=== PATIENT | female | born 1965 | race Caucasian/White ===

== ENCOUNTER 2016-06-04 05:27 | Day surgery (SDC) | payer BC ==
[2016-06-02 16:17] LABS: BASOPHILS 0.2 % (0.0-2.0); EOSINOPHILS 1.5 % (0-7); HEMATOCRIT 42.6 % (36.0-48.0); HEMOGLOBIN 13.8 g/dL (12-16); IMMATURE GRANULOCYTES 0.4 % (0-5); LYMPHOCYTES 28.1 % (15-50); MCH 29.1 pg (26.0-34.0); MCHC 32.4 g/dL (31.0-37.0); MCV 89.9 fL (80.0-100.0); MEAN PLATELET VOLUME 9.2 fL (7.4-10.4); MONOCYTES 7.9 % (2-11); NEUTROPHILS 61.9 % (40-80); RBC 4.74 10x6/uL (4.00-5.40); RDW 13.7 % (11.5-14.5)
[2016-06-02 16:30] LABS: PLATELET COUNT 256 10x3/uL (130-400)
[~2016-06-04] VITALS: Ht 165.1 cm; Wt 160.1 kg
[~2016-06-04 05:27] MED LIST: ACETAMINOPHEN325 MG PO; ALEVE220 MG PO; COLACE100 MG PO; LEXAPRO10 MG PO; MAG-OX 400 MG400 MG PO; MULTIPLE VITAMI1 TA1 PO; OMEPRAZOLE20 M1 PO; VITAMIN D31000 UNIT PO; ZYRTEC10 MG PO
[2016-06-04 06:42] VITALS: BP 133/67; Ht 165.1 cm; Wt 160.1 kg
[2016-06-04 06:58] LABS: HCG URINE NEGATIVE (NEGATIVE)
--- NOTE | 2016-06-04 13:17 | NUR ---
1245-PT. ESCORTED VIA WHEELCHAIR TO PERSONAL CAR, LEFT WITH MOTHER DRIVING.
--- NOTE | 2016-06-17 12:41 | OP ---
PATIENT NAME: SHAWN MORALES MEDICAL RECORD: [id number] :69 LOCATION:D.[facility] ADMISSION DATE: SURGEON: HUMBERTO WASHINGTON MD DATE OF OPERATION: 06/04/2016 PREOPERATIVE DIAGNOSES: Amenorrhea and thickened endometrial lining. POSTOPERATIVE DIAGNOSES: Amenorrhea and thickened endometrial lining. PROCEDURE: Hysteroscopy, dilation and curettage. SURGEON: Humberto Washington MD ESTIMATED BLOOD LOSS: Minimal. INTRAVENOUS FLUIDS: Per anesthesia records. HYSTEROSCOPIC FLUID LOSS: Approximately 300 cc of 0.9 normal saline. SPECIMENS: Endometrial curettings. COMPLICATIONS: None apparent. PROCEDURE IN DETAIL: The patient was taken to the operating room, where general anesthesia was achieved without difficulty. The patient was prepped and draped in normal sterile fashion in the dorsal lithotomy position in the [facility]. Care was taken with the left hip due to a previous hip replacement. The knee was flexed to only approximately 25 degrees and the leg extended only approximately 40 degrees from the supine position. The vagina was prepped and the bladder drained of approximately 100 cc of clear urine. A 4 bladed speculum was then used to visualize the cervix; it was grasped with anterior lip using a single tooth tenaculum. The uterus sounded to 10 cm without any resistance, so the 3 mm hysteroscope was inserted without difficulty to ensure that the patient's cavity was as deep as palpated. The patient had a very long deep endometrial canal and following confirmation of the size, the patient was sounded to approximately 14-15 cm. Findings was copious proliferative appearing endometrium. Gentle curettage was performed and following curettage, the hysteroscope was reintroduced and no evidence of perforation was noted. The tenaculum and speculum were then removed. The patient tolerated the procedure well, transferred to postanesthesia recovery stable without incident. TRANSINT:[id number] Voice Confirmation ID: [id number] DOCUMENT ID: [id number] HUMBERTO WASHINGTON MD at 1240 CC: [id number] DICTATION DATE: 06/04/1625 ENERGY PROJECT ENGINEER: 06/04/16 0937 [facility] [address] [place] [address]
[2016-08-18] MEDS ORDERED: ASPIRIN325 MG PO (11:05)
== END 2016-06-04 12:45 | disposition home or self-care (01) ==
LOC: D.OPS 05:27 → D.PAN 07:45 → D.OPS 07:45
PROVIDERS: Obstetrics & Gynecology
DX: N91.2 Amenorrhea, unspecified (principal); R93.8 Abnormal findings on diagnostic imaging of other specified body structures; N85.01 Benign endometrial hyperplasia; Z96.642 Presence of left artificial hip joint

== ENCOUNTER 2016-08-20 05:22 | Inpatient (IN) | payer BC ==
[2016-08-18 11:51] LABS: CALC OSMOLALITY 278 mosm/kg (275-300); CALCIUM 9.4 mg/dL (8.5-10.1); CARBON DIOXIDE 35.2 mmol/L (21.0-32.0); CHLORIDE - SERUM 98 mmol/L (98-107); CREATININE - SERUM 0.8 mg/dL (0.6-1.3); GLUCOSE 87 mg/dL (74-106); POTASSIUM - SERUM 4.8 mmol/L (3.5-5.1); SODIUM 140 mmol/L (136-145); UREA NITROGEN 14 mg/dL (7-18); eGFR NON AFRICAN AMERICAN 81 mL/min (90-120)
[2016-08-18 11:53] LABS: BASOPHILS 0.4 % (0.0-2.0); EOSINOPHILS 1.3 % (0-7); HEMATOCRIT 43.3 % (36.0-48.0); HEMOGLOBIN 13.8 g/dL (12-16); IMMATURE GRANULOCYTES 0.4 % (0-5); LYMPHOCYTES 31.8 % (15-50); MCH 28.8 pg (26.0-34.0); MCHC 31.9 g/dL (31.0-37.0); MCV 90.4 fL (80.0-100.0); MEAN PLATELET VOLUME 9.6 fL (7.4-10.4); MONOCYTES 7.2 % (2-11); NEUTROPHILS 58.9 % (40-80); PLATELET COUNT 261 10x3/uL (130-400); RBC 4.79 10x6/uL (4.00-5.40); RDW 13.4 % (11.5-14.5); WBC 7.7 10x3/uL (4.8-10.8)
[~2016-08-20] VITALS: Ht 165.1 cm; Wt 112.7 kg
[2016-08-20] VITALS (13 sets, daily range): BP systolic 108–153; BP diastolic 58–88; Ht 165.1 cm; Wt 112.7 kg
[~2016-08-20 05:22] MED LIST changes: +ASPIRIN325 MG PO
[2016-08-20 05:51] LABS: HCG URINE NEGATIVE (NEGATIVE)
--- NOTE | 2016-08-20 10:35 | NUR ---
PLACED PT ON BIPAP PER RT UPON ARRIVAL TO RECOVERY ROOM.
--- NOTE | 2016-08-20 10:58 | NUR ---
REMOVED BIPAP PER OK WITH ANESTHESIA. TOLERATING 4LNC WITH SPO2 OF 94%.
--- NOTE | 2016-08-20 11:04 | NUR ---
PLACED ON OXYMIZER NC TO KEEP SPO2>92% PER ANESTHESIA.
--- NOTE | 2016-08-20 11:30 | NUR ---
PATIENT RECIEVED TO ROOM 1218 SHE IS AWAKE AND ALERT, O2 PER OXIMIZER AT 8LPM. HER SATURATION IS 95%. VSS. IVF AND COUPON REDEMPTION CLERK INITIATED. BIRD CATHETER PATENT WITH BLUEGREEN URINE TO BEDSIDE UROMETER. NO BLEEDING FROM VAGINAL AREA NOTED. DRESSING TO BIKINI INCISION IS C/D/I. SPOUSE AND HER MOTHER ARE AT THE BEDSIDE AT THIS TIME.
--- NOTE | 2016-08-20 11:58 | NUR ---
150cc emptied from the urometer to the collection bag. her pulse ox fell to 86% and oximeter machine alarmed. she tool several deep breaths and her sat osorio to 95%. her mother ai at the bedisde. she states that she is comfortable. tolentino tubing secured to the left leg. hob up 45 degrees with 2 pillows behind her left shoulder to support her more upright. call light is within her reach. monitoring.
--- NOTE | 2016-08-20 13:09 | NUR ---
PATIENT REPOSITIONED FOR COMFORT. 60CC OF MURKY GREEN URINE EMPTIED FROM THE UROMETER INTO THE COLLECTION BAG. VSS. MONITORING. O2 DELIVERY TURNED DOWN TO 5LPM. SATS 95% ON OXIMIZER.
--- NOTE | 2016-08-20 13:41 | NUR ---
PATIENT IS RESTING QUIETLY WITH HER EYES CLOSED. MANAGEMENT CONSULTANT IN USE. SHE STATES THAT SHE IS HURTING A LITTLE BIT. BIRD CATHETER REMAINS PATENT.
--- NOTE | 2016-08-20 14:10 | NUR ---
O2 TO 4L PER OXIMIZER. O2 SAT 96%
--- NOTE | 2016-08-20 14:48 | NUR ---
350CC OF GREEN URINE EMPTIED FROM THE UROMETER INTOR THE COLLECCTION VIKKI. COFFEE GIVEN BLACK PER REQUEST. HER TEMP IS 98.1 AND VSS. LAMARER AND SPOUSE REMAIN AT [facility].
--- NOTE | 2016-08-20 15:10 | NUR ---
VSS. O2 TURNED DOWN TO 3LPM. SAT 95%
--- NOTE | 2016-08-20 16:26 | NUR ---
PATIENT IS 91% ON 2LPM PER NC. SHE IS QWITHOUT C/O UNCONTROLLED PAIN . URINE OP CONTINUES TO BEDSIDE DRAINAGE BAG. CALL LIGHT IS WITHIN HER REACH
--- NOTE | 2016-08-20 16:57 | NUR ---
PTS IV IS PATENT. TUBING CHANGED OUT DUE TO PROBLEMS WITH LINE. PT WAS SITUATED IN BED. PT IS COMFORTABLE. BED IS LOW. SIDE RAILS UP X 2 AND CALL LIGHT IN REACH.
--- NOTE | 2016-08-20 18:27 | NUR ---
PT ATE 100% OF DINNER. FAMILY AT BEDSIDE. PAIN CONTROLLED BY TOOL ADJUSTER.
--- NOTE | 2016-08-20 19:30 | NUR ---
PT RECEIVED LYING IN BED RESTING QUIETLY AT THIS TIME. AAOX3. VSS. IV NOTED TO LEFT WRIST INFUSING LR @ 125 CC/HR WITH DILAUDID ELECTROMECHANICAL INSPECTOR. PATENT. DRESSING CDI. BIRD ATTACHED TO RIGHT THIGH. DRAINING LIGHT GREEN URINE. PT RATES PAIN 4/10 AT THIS TIME. HEART SINUS TACHYCARDIA RHYTHM REGULAR. PULSE-107. LUNG SOUNDS CLEAR BILATERALLY. BOWEL SOUNDS ACTIVE X4 QUADRENTS. ABDOMEN SOFT WITH TENDERNESS. LOW TRANSVERSE INCISION NOTED TO ABDOMEN COVERED WITH BANDAGE. DRESSING CDI. SCDS NOTED TO BLE. PT USED IS AT THIS TIME. PULLED 1500. PT ALSO COUGHED AT THIS TIME. REINFORCED IMPORTANCE OF TURNING, COUGHING, AND DEEP BREATHING. PT VERBALIZED UNDERSTANDING. REQUESTS ICE PACK. DENIES OTHER NEEDS. BED LOW. PHONE AND CALL LIGHT IN REACH. SRX2.
--- NOTE | 2016-08-20 19:32 | NUR ---
CURRENT LR INFUSION COMPLETE. OLD BAG DOWN. NEW BAG UP TO PRESENT TUBING INFUSING @ 100 ML/HR PER ORDERS. SEE EMAR.
--- NOTE | 2016-08-20 20:20 | NUR ---
PT BRICKLAYER'S ASSISTANT LIGHT. REQUESTS BEDSIDE TABLE BE MOVED WITHIN REACH. DENIES OTHER NEEDS. BED LOW. PHONE AND CALL LIGHT IN REACH. SRX2.
[2016-08-20 20:22] LABS: BASOPHILS 0.1 % (0.0-2.0); EOSINOPHILS 0 % (0-7); HEMATOCRIT 38.2 % (36.0-48.0); IMMATURE GRANULOCYTES 0.3 % (0-5); LYMPHOCYTES 8.2 % (15-50); MCH 28.3 pg (26.0-34.0); MCHC 31.4 g/dL (31.0-37.0); MCV 90.1 fL (80.0-100.0); MEAN PLATELET VOLUME 9.8 fL (7.4-10.4); MONOCYTES 7.1 % (2-11); NEUTROPHILS 84.3 % (40-80); PLATELET COUNT 231 10x3/uL (130-400); RBC 4.24 10x6/uL (4.00-5.40); RDW 13.2 % (11.5-14.5); WBC 15.3 10x3/uL (4.8-10.8)
[2016-08-20 20:46] LABS: CALC OSMOLALITY 280 mosm/kg (275-300); CALCIUM 8.5 mg/dL (8.5-10.1); CARBON DIOXIDE 31.4 mmol/L (21.0-32.0); CHLORIDE - SERUM 102 mmol/L (98-107); CREATININE - SERUM 0.8 mg/dL (0.6-1.3); POTASSIUM - SERUM 4.3 mmol/L (3.5-5.1); SODIUM 140 mmol/L (136-145); UREA NITROGEN 10 mg/dL (7-18); eGFR NON AFRICAN AMERICAN 81 mL/min (90-120)
[2016-08-20 20:49] LABS: GLUCOSE 144 mg/dL (74-106)
--- NOTE | 2016-08-20 21:48 | NUR ---
PT LYING IN BED RESTING QUIETLY AT THIS TIME. DENIES NEEDS. BED LOW. PHONE AND CALL LIGHT IN REACH. SRX2.
--- NOTE | 2016-08-20 22:46 | NUR ---
PT RESTING QUIETLY AT THIS TIME WITH EYES CLOSED. RESPIRATIONS EVEN, NON-LABORED. NO ACUTE DISTRESS NOTED AT THIS TIME. BED LOW. PHONE AND CALL LIGHT IN REACH. SRX2.
--- NOTE | 2016-08-20 23:46 | NUR ---
PT RESTING QUIETLY AT THIS TIME WITH EYES CLOSED. AROUSED EASILY. EMPTIED 1600 CC LIGHT GREEN URINE FROM BIRD AT THIS TIME. PT DENIES NEEDS. BED LOW. PHONE AND CALL LIGHT IN REACH. SRX2.
[2016-08-21 03:50] VITALS: BP 125/60
--- NOTE | 2016-08-21 03:50 | NUR ---
PT WATCHING TV AT THIS TIME. VSS. PT DENIES NEEDS AT THIS TIME. BED LOW. PHONE AND CALL LIGHT IN REACH. SRX2.
--- NOTE | 2016-08-21 04:20 | NUR ---
1000 CC SHANTA URINE EMPTIED FROM BIRD AT THIS TIME. PT REQUESTS ICE WATER. DENIES OTHER NEEDS.
--- NOTE | 2016-08-21 05:24 | NUR ---
PT RESTING QUIETLY AT THIS TIME WITH EYES CLOSED. AROUSED EASILY. DENIES NEEDS. BED LOW. PHONE AND CALL LIGHT IN REACH. SRX2.
[2016-08-21 06:28] LABS: BASOPHILS 0.1 % (0.0-2.0); EOSINOPHILS 0.1 % (0-7); HEMATOCRIT 36.1 % (36.0-48.0); HEMOGLOBIN 11.2 g/dL (12-16); IMMATURE GRANULOCYTES 0.2 % (0-5); LYMPHOCYTES 15.4 % (15-50); MCH 28.1 pg (26.0-34.0); MCV 90.7 fL (80.0-100.0); MEAN PLATELET VOLUME 9.7 fL (7.4-10.4); MONOCYTES 12.6 % (2-11); NEUTROPHILS 71.6 % (40-80); PLATELET COUNT 220 10x3/uL (130-400); RBC 3.98 10x6/uL (4.00-5.40); RDW 13.3 % (11.5-14.5); WBC 12.4 10x3/uL (4.8-10.8)
[2016-08-21 06:40] LABS: CALCIUM 8.5 mg/dL (8.5-10.1); CHLORIDE - SERUM 102 mmol/L (98-107); POTASSIUM - SERUM 4.4 mmol/L (3.5-5.1); SODIUM 140 mmol/L (136-145); UREA NITROGEN 9 mg/dL (7-18)
[2016-08-21 06:42] LABS: CALC OSMOLALITY 278 mosm/kg (275-300); CREATININE - SERUM 0.5 mg/dL (0.6-1.3); GLUCOSE 121 mg/dL (74-106); eGFR NON AFRICAN AMERICAN > 90 mL/min (90-120)
--- NOTE | 2016-08-21 07:15 | NUR ---
DR MILAN ROBERT.
[2016-08-21 07:30] VITALS: BP 131/73
--- NOTE | 2016-08-21 07:39 | NUR ---
TO ROOM TO DO VITAL SIGNS AND ASSESSMENT. DOCUMENTED IN FLOW CHART. STATES THAT PAIN AT 5 ON NUMERIC SCALE. READDRESSED THE PLAN TO DC BIRD AND SPINDLE SANDER WITH THE CONVERSION TO PO MEDICATIONS FOR PAIN. STATES UNDERSTANDING AND THAT SHE HAS NO FURTHER NEEDS AT THIS TIME.
--- NOTE | 2016-08-21 08:00 | NUR ---
PT WAS RECEIVED SITTING UP IN BED GETTING READY TO EAT BREAKFAST. GEN- AWAKE AND ALERT. LUNGS- CLEAR. HEART- RRR. ABD- OBESE, BIKINI LINE INCISION WITH DRESSING- CLEAN , DRY AND INTACT. EXT- WITH SCD'S NOTED BILATERALLY. BIRD INTACT WITH SHANTA COLORED URINE. HAS HAD GOOD OUTPUT. IV PATENT- LEFT WRIST-WITH LR INFUSING AT 125CC/HR. DILAUDID CABLE TELEVISION PROGRAM DIRECTOR. SCD'S INTACT. BED IS LOW, SIDE RAILS UP X 2 AND CALL LIGHT IN REACH.
--- NOTE | 2016-08-21 08:20 | NUR ---
Pt awake and alert. PIV infusing without difficulty. SCD on BLE and working, tolentino to bedside gravity. BANQUET KITCHEN SUPERVISOR in use for pain control. Pt happy with care and denies needs at this time. No acute distress noted at this time.
--- NOTE | 2016-08-21 08:53 | NUR ---
SITTING IN BED WATCHING TV AND TALKING ON PHONE. STATES THAT SHE IS "DOING FINE' AND " I DON'T NEED ANYTHING".
--- NOTE | 2016-08-21 09:27 | NUR ---
PROVIDED FRESH WATER AND ICE. WATCHED PT USED THE INCENTIVE SPIROMETER SUCCESSFULLY. ENCOURAGED DEEP BREATHING AND TURNING. STATES UNDERSTANDING.
--- NOTE | 2016-08-21 10:43 | NUR ---
DRAINED BIRD BAG OF 425 ML OF CLEAR, PALE YELLOW URINE. DC'd FOLLEY CATH. WELL TOLERATED. PROVIDED ADILSON CARE. REPOSITIONED IN BED. DC'd YARN SKEINS EXAMINER AND PROVIDED ORAL PAIN MEDICATIONS REQUESTED AND ORDERED FOR PAIN LEVEL OF 8 AFTER THE REPOSITIONING. INSTRUCTED TO CALL WHEN SHE NEEDS TO GO TO THE BR. BED IN LOWEST POSITION, S/R UP X 2, CALL LIGHT AND PHONE WITHIN REACH. FAMILLY AT BEDSIDE.
--- NOTE | 2016-08-21 11:29 | NUR ---
REASSESSED THE LEVEL OF PAIN. STATES 3 ON NUMERIC SCALE. AND FEMALE AT BEDSIDE. ALL ARE ON THEIR PHONES/[id number]. STATES NO FURTHER NEEDS AT THIS TIME. STATES SHE "WILL CALL WHEN SHE NEEDS TO JULIA TO THE BATHROOM".
--- NOTE | 2016-08-21 12:12 | NUR ---
WATCHING TV IN BED. FAMILY LEAVING FOR LUNCH. STATES NO NEEDS AT THIS TIME. WILL CONTINUE TO MONITOR.
--- NOTE | 2016-08-21 14:19 | NUR ---
GAVE PAIN MEDICATION REQUESTED AND ORDERED FOR PAIN OF 3 ON NUMERIC SCALE. REPOSITIONED AND PROVIDED FRESH ICEWATER. WILL MONITOR.
--- NOTE | 2016-08-21 14:51 | NUR ---
STAND BY ASSISTED ONLY NEEDED, UP TO RESTROOM WITHOUT DIFFICUILTY DENIES DIZZINESS AT THIS TIME.
--- NOTE | 2016-08-21 15:10 | NUR ---
STAND BY ONLY FOR PT TO RETURN FROM BR. 350 ML OF SLIGHTLY BLOOD TINGED URINE IN HAT. AMBULATED WELL NEEDED NO ASSISTANCE RETURNING TO BED. COUGHED AND DID DEEP BREATHING. BED IN LOWEST POSITION, S/R UP X 2, CALL LIGHT AND PHONE WITHIN REACH. STATES NO FURTHER NEEDS AT THIS TIME.
--- NOTE | 2016-08-21 16:34 | NUR ---
PT RESTING WITH EYES CLOSED AND STEADY EVEN RESPIRATIONS. AWAKENS TO VOICE, SMILES, GIVES ME A THUMBS UP AND DRIFTS BACK OFF TO SLEEP. FEMALE FAMILY MEMBER AT BEDSIDE. WILL CONTINUE TO MONITOR.
--- NOTE | 2016-08-21 16:49 | NUR ---
RESPONDED TO CALL LIGHT. UP TO VOID WITH BEING THE THIRD VOID. OUTPUT OF OVER 300 ML LAST TWO ATTEMPTS.
--- NOTE | 2016-08-21 17:07 | NUR ---
DC'd IV OF LEFT WRIST. TIP INTACT, NO EDEMA, NO REDNESS. TOLERATED WELL. VOIDED 600ML OF CLEAR YELLOW WITH TWO PEA SIZE CLOTS PRESENT. REAJUSTED LINENS AND REPOSITIONED PT. STATES NO FURTHER NEEDS AT THIS TIME.
--- NOTE | 2016-08-21 17:18 | NUR ---
WASTING THE HYDROMORPHONE HCL IN THE TOILET BECAUSE IT WAS NOT ON THE PIXIS. RN CALLED PHARMACY AND WAS INSTRUCTED TO NOTE HERE. 5.6MG OF THE 12MG TOTAL WAS GIVEN AND WE WASTED 6.4.
[2016-08-21 19:50] VITALS: BP 124/70
--- NOTE | 2016-08-21 19:50 | NUR ---
PT RECEIVED SITTING UP IN CHAIR AT THIS TIME AAOX3 WATCHING TV. VSS. HEART RRR. LUNG SOUNDS CLEAR BILATERALLY. BOWEL SOUNDS ACTIVE X4 QUADRENTS. ABDOMEN SOFT WITH TENDERNESS. LOW TRANSVERSE INCISION NOTED TO ABDOMEN WITH BANDAGE IN PLACE. CDI. PT STATES SHE IS PASSING GAS AT THIS TIME. PT DENIES NEEDS. BED LOW. PHONE AND CALL LIGHT IN REACH. SRX2.
--- NOTE | 2016-08-21 20:47 | NUR ---
PT SITTING UP IN CHAIR AT THIS TIME REQUESTS MEDICATION FOR PAIN 10/07. ADMINISTERED NORCO AND MOTRIN PO PER ORDERS AT THIS TIME. PT ALSO REQUESTS ICE WATER. DENIES OTHER NEEDS. BED LOW. PHONE AND CALL LIGHT IN REACH. SRX2.
--- NOTE | 2016-08-21 21:35 | NUR ---
PT BACK IN BED AT THIS TIME. REASSESSED PTS PAIN. RATES PAIN 5/10. DENIES NEEDS. BED LOW. PHONE AND CALL LIGHT IN REACH. SRX2.
--- NOTE | 2016-08-21 22:15 | NUR ---
PT RESTING QUIETLY AT THIS TIME. AROUSED EASILY. DENIES NEEDS. BED LOW. PHONE AND CALL LIGHT IN REACH. SRX2.
[2016-08-21 23:55] VITALS: BP 132/55
--- NOTE | 2016-08-21 23:55 | NUR ---
PT RESTING QUIETLY AT THIS TIME WITH EYES CLOSED. AROUSED EASILY. DENIES NEEDS AT THIS TIME. BED LOW. PHONE AND CALL LIGHT IN REACH. SRX2.
--- NOTE | 2016-08-22 01:56 | NUR ---
PT RESTING QUIETLY AT THIS TIME WITH EYES CLOSED. AROUSED EASILY. DENIES NEEDS. BED LOW. PHONE AND CALL LIGHT IN REACH. SRX2.
[2016-08-22 03:38] VITALS: BP 124/81
--- NOTE | 2016-08-22 03:38 | NUR ---
PT RESTING QUIETLY AT THIS TIME AWAKE AND ALERT. DENIES NEEDS. PT STATES SHE IS GOING TO GET UP TO USE THE RESTROOM AT THIS TIME. BED LOW. PHONE AND CALL LIGHT IN REACH. SRX2.
[2016-08-22 07:15] VITALS: BP 147/76
--- NOTE | 2016-08-22 07:30 | NUR ---
PT AWAKE, ALERT, ORIENTED, SITTING UP IN BED. VSS. DRESSING TO LOWER ABD C/D/I UNDER LARGE PANNACULUS. PT STATES SHE HAS PASSED GAS. BS PRESENT. REG DIET PROVIDED. NO OTHER NEEDS AT THIS TIME.
--- NOTE | 2016-08-22 08:46 | NUR ---
TOWELS PROVIDED. PT UP TO SHOWER.
--- NOTE | 2016-08-22 09:13 | NUR ---
RESTING IN BED AFTER SHOWER. FAMILY AT BEDSIDE. NO NEEDS.
--- NOTE | 2016-08-22 10:08 | NUR ---
RESTING EASILY WITH EYES CLOSED, EVEN RESP. FAMILY AT BEDSIDE.
--- NOTE | 2016-08-22 10:50 | NUR ---
DR. VILLAGRAN HERE FOR ROUNDS. DRESSING D/C'D FROM INCISION. INCISION LINE C/D/I WITH TURNER. COVERED WITH ADILSON PAD FOR COMFORT.
[2016-08-22] MEDS ORDERED: IBUPROFEN600 MG PO (11:37)
[2016-08-22] MEDS ORDERED: HYDROCODONE-APA1 TAB PO (11:37)
--- NOTE | 2016-08-22 11:50 | NUR ---
D/C INSTRUCTIONS EXPLAINED TO PT. VOICED UNDERSTANDING. COPIES OF ALL GIVEN TO PT, WELL WRITTEN RX'S FOR NORCO 10 AND [address]PROF[address] LIN. PT INSTRUCTED, PER DR. VILLAGRAN, TO CALL PCP WEDNESDAY RE WHEN TO RESUME ASA SHE TAKES DAILY. VOICED UNDERSTANDING.
--- NOTE | 2016-08-22 11:59 | NUR ---
D/C'D HOME VIA W/C TO PRIVATE CAR.
--- NOTE | 2016-08-24 07:28 | DS ---
PATIENT:SHAWN MORALES :69 MEDICAL RECORD: [id number] DISCHARGE SUMMARY ADMISSION DATE: 08/20/16 DISCHARGE DATE: 08/22/16 This patient is a 51-year-old white female, who underwent total abdominal hysterectomy and bilateral salpingo-oophorectomy on August 20. At her discharge on August 22, the patient was doing well, afebrile. Vital signs stable. Lungs are clear. Abdomen, soft, morbidly obese, normally tender. Incision was intact, dry, with no drainage or signs of infection. The patient was ambulating without problems and tolerating regular diet. She was discharged home to return to the office for followup as scheduled with Dr. Washington. TRANSINT:[id number] Voice Confirmation ID: [id number] DOCUMENT ID: [id number] SWATI VILLAGRAN MD at 0728 CC: [id number] DICTATION DATE: 08/23/16 1143 PROGRAM MANAGEMENT ANALYST: 08/23/16 2137 DIS IN 08/22/16 [id number] [place] [address]
--- NOTE | 2016-08-27 09:02 | OP ---
PATIENT NAME: SHAWN MORALES MEDICAL RECORD: [id number] :69 LOCATION:[facility]23 ADMISSION DATE:08/20/16 SURGEON: KARTIK WASHINGTON MD DATE OF OPERATION: 08/20/2016 PREOPERATIVE DIAGNOSES: 1. Menorrhagia. 2. Fibroids. 3. History of simple hyperplasia. PREOPERATIVE DIAGNOSES: 1. Menorrhagia. 2. Fibroids. 3. History of simple hyperplasia. POSTOPERATIVE DIAGNOSES: 1. Menorrhagia. 2. Fibroids. 3. History of simple hyperplasia. PROCEDURE: Total abdominal hysterectomy, bilateral salpingo-oophorectomy. SURGEON: Kartik Washington MD ESTIMATED BLOOD LOSS: 1000 cc. ANESTHESIA: General endotracheal. INTRAVENOUS FLUIDS: Per anesthesia record. SPECIMENS: Uterus with cervix, bilateral fallopian tubes and ovaries. FINDINGS: 1. Enlarged uterus approximately 700 grams with myomas. 2. Grossly normal-appearing fallopian tubes and ovaries bilaterally. COMPLICATIONS: None apparent. PROCEDURE IN DETAIL: The patient was taken to the operating room where general anesthesia was achieved without difficulty. The patient was prepped and draped in normal sterile fashion in the dorsal supine position. SCDs were on and functioning normally. A Recinos catheter was placed and was draining freely. Following abdominal prep, a Pfannenstiel skin incision was made, extended downward to the underlying subcutaneous fat to level of the fascia. The fascia was then excised with a scalpel in the midline and extended bilaterally using the Daily scissors. The superior and inferior aspects of the fascial incision were then grasped with Ana clamps times 2, tented upward, and sharply dissected from the underlying rectus muscle using the Bovie cautery and the Daily scissors. At this point, the rectus muscles were found to be in the midline, superior aspect of the incision, the peritoneum was entered sharply using the Metzenbaum scissors and intraperitoneal placement was confirmed visually, the peritoneal incision was extended bilaterally and inferiorly using the Metzenbaum scissors. Uterus was identified and found to be too large to fit through the incision. At this point, approximately 2 cm were added bilaterally on the skin incision and the underlying subcutaneous fat was taken down using OPERATIVE REPORT [id number] SHAWN MORALES the Bovie cautery. At this point, the uterus was delivered through the incision. The round ligaments were identified bilaterally, clamped times 2 with Ana clamps, cut and suture ligated with 0 Vicryl. The bladder flap was created by excising the anterior leaf of the broad ligament downward from the lower uterine segment. Bladder dissection was performed using the Metzenbaum scissors and the sponge stick. At this point, the infundibulopelvic ligaments were found to be attenuated. A defect in the posterior leaf of the broad ligament was made between the uterine vessels and infundibulopelvic ligament. The infundibulopelvic ligament was then clamped immediately adjacent to the ovary and a curved Meryl clamp was placed across the proximal portion of the fallopian tube and the uteroovarian ligament. The infundibulopelvic ligament was excised from the ovary and the pedicle was first tied with an 0 Vicryl tie, flushed and then suture ligated medially with good hemostasis noted. The same was performed on the left. Uterine arteries were then skeletonized using the Metzenbaum scissors. The uterine vessels were identified and clamped with curved Meryl clamps. These were then cut and suture ligated with 0 Vicryl. Several successive bites of the cardinal ligaments were taken using straight Meryl clamps. These were cut and suture ligated with 0 Vicryl. Due to difficult exposure, the uterus was removed by amputating and leaving portion of the cervix within. Once the uterus was removed, the cervix was grasped on its posterior side using a Ana clamp, tented upward, cardinal ligaments were then clamped with straight Meryl clamps medially, cut and suture ligated with 0 Vicryl. This was performed 2-3 times bilaterally at the level of the vagina. At this point, the vagina was opened using the Lubna scissors anteriorly and once the cervical fornix was identified. The vagina was excised circumferentially around the cervix and the cervix was removed. The posterior vaginal cuff was grasped with a Ana clamp, cuff was repaired with 0 Vicryl in interrupted [id number] fashion using 0 Vicryl. Several areas of the pedicles were oversewn with 2-0 Vicryls with good hemostasis. At this point, brisk bleeding was noted from the bladder dissection. Several 2-0 Vicryl stitches were placed and a superficial cautery using the Bovie was performed with improved hemostasis. Pressure and FloSeal was placed on the site and good hemostasis was then noted. The pedicles were then checked for bleeding, covered with FloSeal after the pelvis had been thoroughly irrigated and the lap sponges were removed. Counts were correct times 2. The fascia was repaired with 0 loop PDS times 1 in a running locked fashion. The subcutaneous fat was approximated using 2-0 plain gut suture and the skin was repaired with heraclio. The patient tolerated the procedure well and was transferred to postanesthesia recovery stable without incident. TRANSINT:[id number] Voice Confirmation ID: [id number] DOCUMENT ID: [id number] KARTIK WASHINGTON MD at 0902 CC: [id number] DICTATION DATE: 08/20/16 1159 TABLE GAMES SUPERVISOR: 08/20/16 1224 ADM IN [place] [id number] [place] [id number]
== END 2016-08-22 12:15 | disposition home or self-care (01) | DRG 743 ==
LOC: D.SDCHOLD 05:22 → D.WS 05:22 → D.SDCHOLD 07:30 → D.WS 10:35
PROVIDERS: ADMIT Obstetrics & Gynecology
PROC: 0UTC0ZZ Resection of Cervix, Open Approach (ICD-10-PCS; 2016-08-20)
PROC: 0UT20ZZ Resection of Bilateral Ovaries, Open Approach (ICD-10-PCS; 2016-08-20)
PROC: 0UT70ZZ Resection of Bilateral Fallopian Tubes, Open Approach (ICD-10-PCS; 2016-08-20)
PROC: 0UT90ZZ Resection of Uterus, Open Approach (ICD-10-PCS; principal; 2016-08-20 07:30)
DX: N92.0 Excessive and frequent menstruation with regular cycle (principal); D25.9 Leiomyoma of uterus, unspecified; N85.00 Endometrial hyperplasia, unspecified; K21.9 Gastro-esophageal reflux disease without esophagitis; Z87.891 Personal history of nicotine dependence

== ENCOUNTER 2016-08-29 00:08 | Emergency (ER) | payer BC ==
[2016-08-20 15:15] VITALS: BMI 41.3
[~2016-08-29 00:08] MED LIST changes: +HYDROCODONE-APA1 TAB PO; +IBUPROFEN600 MG PO
[2016-08-29 01:49] LABS: APPEARANCE CLEAR (CLEAR); BILIRUBIN NEGATIVE (NEGATIVE); COLOR YELLOW (YELLOW); GLUCOSE NEGATIVE (NEGATIVE); KETONE NEGATIVE (NEGATIVE); LEUKOCYTE ESTERASE TRACE (NEGATIVE); NITRITE NEGATIVE (NEGATIVE); PROTEIN NEGATIVE (NEGATIVE); SPECIFIC GRAVITY 1.015 (1.005-1.020); UROBILINOGEN NORMAL (NORMAL)
[2016-08-29 01:50] LABS: BACTERIA FEW /hpf (NONE SEEN); EPITHELIAL CELLS RARE /hpf (0-5); RED CELLS - URINE 0-5 /hpf (0-5); WHITE CELLS - URINE 0-5 /hpf (0-5)
== END 2016-08-29 03:20 | disposition home or self-care (01) ==
LOC: D.ER 00:08
PROVIDERS: Family Medicine
DX: L03.311 Cellulitis of abdominal wall (principal)

== ENCOUNTER → 2017-07-30 22:05 | Outpatient (CLI) | payer BC ==
[2016-08-20 15:15] VITALS: BMI 41.3
[~2017-07-30 22:05] MED LIST changes: +HYDROCODON-ACE1 EAC7 PO; +MACROBID100 MG PO; -MAG-OX 400 MG400 MG PO; +MAGNESIUM PO; +MOBIC7.5 MG PO; +NORMODYNE / TR100 MG PO; +PROBIOTIC1 EAC1 PO; -VITAMIN D31000 UNIT PO; +VITAMIN D3400 UNI1 PO
== END | disposition home or self-care (01) ==
LOC: D.MAMMO 07-22 14:45
DX: Z12.31 Encounter for screening mammogram for malignant neoplasm of breast (principal)

== ENCOUNTER → 2017-08-23 08:31 | Outpatient (CLI) | payer BC ==
[2016-08-20 15:15] VITALS: BMI 41.3
== END | disposition home or self-care (01) ==
LOC: D.SP 08:31
DX: M16.11 Unilateral primary osteoarthritis, right hip (principal)

== ENCOUNTER 2017-09-16 05:20 | Day surgery (SDC) | payer BC ==
[2017-09-14 11:33] LABS: BASOPHILS 0.2 % (0-2); EOSINOPHILS 1.7 % (0-7); HEMATOCRIT 44.4 % (36.0-48.0); HEMOGLOBIN 14.3 g/dL (12-16); IMMATURE GRANULOCYTES 0.3 % (0-5); LYMPHOCYTES 39.7 % (15-50); MCH 28.9 pg (26.0-34.0); MCHC 32.2 g/dL (31.0-37.0); MCV 89.7 fL (80.0-100.0); MEAN PLATELET VOLUME 9.5 fL (7.4-10.4); MONOCYTES 8.5 % (2-11); NEUTROPHILS 49.6 % (40-80); RBC 4.95 10x6/uL (4.00-5.40); RDW 14.1 % (11.5-14.5); WBC 6.5 10x3/uL (4.8-10.8)
[2017-09-14 11:43] LABS: CALC OSMOLALITY 279 mosm/kg (275-300); CALCIUM 9.1 mg/dL (8.5-10.1); CARBON DIOXIDE 30.4 mmol/L (21.0-32.0); CHLORIDE - SERUM 101 mmol/L (98-107); CREATININE - SERUM 0.6 mg/dL (0.6-1.3); GLUCOSE 85 mg/dL (74-106); POTASSIUM - SERUM 4.8 mmol/L (3.5-5.1); SODIUM 140 mmol/L (136-145); UREA NITROGEN 19 mg/dL (7-18); eGFR NON AFRICAN AMERICAN > 90 mL/min (90-120)
[2017-09-14 11:59] LABS: PLATELET COUNT 281 10x3/uL (130-400)
[~2017-09-16] VITALS: Ht 165.1 cm; Wt 140.0 kg
[2017-09-16] VITALS (11 sets, daily range): BP systolic 124–165; BP diastolic 58–85; Ht 165.1 cm; Wt 140.0 kg
--- NOTE | ~2017-09-16 | OP ---
PATIENT NAME: SHAWN MORALES MEDICAL RECORD: [id number] :69 LOCATION:[facility].1274 ADMISSION DATE: SURGEON: FREDY TAYLOR MD DATE OF OPERATION: 09/16/2017 SURGEON: Fredy Taylor MD ANESTHESIA: General anesthesia. ANESTHESIOLOGIST: Chris Syed CRNA. APARTMENT HOTEL MANAGER SURGEON: Kartik Washington DIAGNOSIS: Intraoperative bladder perforation, 1 cm. PROCEDURES: Cystoscopy and repair of bladder perforation, 1 cm. FINDINGS: On cystoscopy, bilateral ureteral orifices intact, methylene blue excretion seen from each ureteral orifice. A 1 cm perforation of the bladder posteriorly in the midline, near the dome. No bladder tumors seen. BLOOD LOSS: None. CLINICAL HISTORY: This is a 52-year-old female, who previously had a hysterectomy for endometrial hyperplasia. Dr. Washington with the time left the cervix in. She has continued to have some vaginal bleeding and now she comes for a trachelectomy. During the surgery, the cervical stump was quite adherent to the bladder and in dissecting it off, a small perforation was made with Metzenbaum scissors right into the bladder. I was asked to come and see the patient intraoperatively. I let the surgery be completed first in terms of the trachelectomy and then I would proceed with a bladder repair. DESCRIPTION OF PROCEDURE: The patient is already under general anesthetic. She has been given her preoperative antibiotics. She is in lithotomy position. When I came into the OR, cystoscopy was the first item to be done. A 21-Czech cystoscope with 30-degree lens was used for visualization. She has single ureteral orifices. Dr. Washington had asked her methylene blue to be injected and I could see jets of urine coming from each ureteral orifice. Therefore, the ureters are intact. In the posterior midline, close to the dome of the bladder, there was a clean perforation of the bladder, less than 1 cm in length. I filled the bladder up through the cystoscope. The scope was then removed. Going from the vaginal view, we could see the leakage of urine from the perforation site. This is just anterior to the vaginal cuff where the cervix had been. I used Metzenbaum scissors and raised the vaginal mucosal flap circumferentially around the site of the bladder perforation. The dissection was carried for at least 1 cm all around. Posteriorly, it was much harder to dissect the flap because the tissue there was gathered and distorted by the vaginal cuff. Once the vaginal flap was raised, 2-0 Vicryl was used in full-thickness running closure to close the defect. I performed cystoscopy again and again filled the bladder. We noted some leakage from the posterior portion of the defect. Further sutures were placed here. Again, cystoscopy was repeated and at this point, there was a very tiny leak, but I could not identify the exact site of it. At this point, it was decided to leave the patient with a Recinos catheter. The Recinos catheter was placed, 16-Czech Recinos catheter with 10 cc in the balloon. This was put to bag drainage. We then closed the vaginal OPERATIVE REPORT [id number] SHAWN MORALES mucosa using running 3-0 Vicryl. A vaginal packing consisting of Kerlix infiltrated with estradiol cream was then placed in the vagina. The patient will be having a 23-hour stay. The patient will be keeping the Recinos catheter for at least 1 week. I will arrange for outpatient cystogram to be performed prior to removing the Recinos catheter. TRANSINT:[id number] Voice Confirmation ID: [id number] DOCUMENT ID: [id number] FREDY TAYLOR MD at 1732 CC: [id number] DICTATION DATE: 09/16/17 1131 MEDICAL CASE MANAGER: 09/16/17 1156 REG [facility] [address] [place] [id number]
--- NOTE | ~2017-09-16 | OP ---
PATIENT NAME: SHAWN MORALES MEDICAL RECORD: [id number] :69 LOCATION:D[facility] ADMISSION DATE: SURGEON: HUMBERTO WASHINGTON MD DATE OF OPERATION: 09/16/2017 PREOPERATIVE DIAGNOSES: 1. Bleeding, status post supracervical hysterectomy. 2. History of endometrial hyperplasia on hysterectomy sample. PROCEDURE: 1. Trachelectomy. 2. Repair of cystotomy. SURGEON: Humberto Washington MD ASSISTANTS: Dr. Gillespie and Dr. Beatty. ANESTHESIA: General endotracheal. SPECIMENS: Included cervix. ESTIMATED BLOOD LOSS: Approximately 500 cc. FINDINGS: Partial cervical stump as well as inadvertent cystotomy during the procedure. COMPLICATIONS: Cystotomy as mentioned. PROCEDURE IN DETAIL: The patient was taken to the operating room where general anesthesia was achieved without any difficulty. The patient was then prepped and draped in normal sterile fashion in the dorsal lithotomy position in the [facility]. The bladder was drained of approximately 200 cc of clear yellow urine and then approximately 60 cc of water with methylene blue was placed into the bladder. The catheter was then removed and a weighted speculum was placed into the posterior vagina and a small Roseline was used anteriorly to lift the bladder and expose the cervical stump. This was then grasped with a tenaculum. Due to the difficulty of exposure, Dr. Gillespie was called to assist. At this point, a defect was made in the posterior vaginal cuff behind the cervical stump because very minimal posterior cervical tissue remained. The vaginal mucosa was then excised anteriorly. Attempt was made to dissect into the anterior cul-de-sac. During dissection, the bladder was injured in the midline with the Metzenbaum scissors, a defect of less than 1 cm. The bladder margins were then grasped with Allis clamps for further identification later. The bladder was then properly dissected away from the cervix and the posterior dissection was finished. The cervical stump was then clamped bilaterally on its blood supply, cut and suture ligated. The small cervical stump was then removed and the vaginal defect was delineated with Allis clamps. At this point, Dr. Beatty from urology was called in and repair of the bladder was performed. The vaginal mucosa was then repaired using 0 and 2-0 Vicryl in an interrupted fashion. Cystoscopy was performed by Dr. Beatty and no leakage of urine was noted at the end of the case. A Recinos catheter was then placed. The instruments were removed. Counts were correct times 2. At the end of the case, a moist Kerlix was used to pack the vagina. The patient tolerated the procedure well and was transferred to postanesthesia recovery stable without incident. OPERATIVE REPORT [id number] SHAWN MORALES TRANSINT:[id number] Voice Confirmation ID: [id number] DOCUMENT ID: [id number] HUMBERTO WASHINGTON MD at 1614 CC: [id number] DICTATION DATE: 09/25/17 0543 TELEVISION PRODUCTION CLERK: 09/25/17 0748 [facility] 09/17/17 [facility] [address] [place] [address]
[~2017-09-16 05:20] MED LIST changes: -HYDROCODON-ACE1 EAC7 PO; -MACROBID100 MG PO; -NORMODYNE / TR100 MG PO
[2017-09-17 07:05] VITALS: BP 111/58
[2017-09-17] MEDS ORDERED: MACROBID100 MG PO (07:53)
[2017-09-17] MEDS ORDERED: NORMODYNE / TR100 MG PO (07:53)
[2017-09-17] MEDS ORDERED: HYDROCODON-ACE1 EAC7 PO (07:54)
[2017-09-17] MEDS ORDERED: IBUPROFEN600 MG PO (07:55)
== END 2017-09-17 10:10 | disposition home or self-care (01) ==
LOC: D.OPS 05:20 → D.PAN 07:30 → D.LD 11:23 → D.OPS 09-17 10:10 → D.PAN 09-23 07:30
PROVIDERS: Obstetrics & Gynecology
DX: N85.00 Endometrial hyperplasia, unspecified (principal); I10 Essential (primary) hypertension; K21.9 Gastro-esophageal reflux disease without esophagitis; E78.5 Hyperlipidemia, unspecified; M19.90 Unspecified osteoarthritis, unspecified site; N99.71 Accidental puncture and laceration of a genitourinary system organ or structure during a genitourinary system procedure; F17.200 Nicotine dependence, unspecified, uncomplicated

== ENCOUNTER → 2017-12-29 08:20 | Outpatient (CLI) | payer BC ==
[~2017-12-29] VITALS: Ht 165.1 cm; Wt 158.3 kg
[~2017-12-29 08:20] MED LIST changes: +HYDROCODON-ACE1 EAC7 PO; +MACROBID100 MG PO; +NORMODYNE / TR100 MG PO
[2017-12-29 09:39] VITALS: Ht 165.1 cm; Wt 158.3 kg
== END | disposition home or self-care (01) ==
LOC: D.FANS 08:20
DX: E66.01 Morbid (severe) obesity due to excess calories (principal)

== ENCOUNTER → 2018-01-28 08:07 | Outpatient (CLI) | payer BC ==
[2017-12-29 09:39] VITALS: BMI 58.0
[2018-01-28 09:51] LABS: BASOPHILS 0.3 % (0-2); EOSINOPHILS 3.7 % (0-7); HEMATOCRIT 41.9 % (36.0-48.0); HEMOGLOBIN 13.6 g/dL (12-16); IMMATURE GRANULOCYTES 0.3 % (0-5); LYMPHOCYTES 35.8 % (15-50); MCH 28.6 pg (26.0-34.0); MCHC 32.5 g/dL (31.0-37.0); MCV 88.2 fL (80.0-100.0); MEAN PLATELET VOLUME 9.7 fL (7.4-10.4); MONOCYTES 7.3 % (2-11); NEUTROPHILS 52.6 % (40-80); PLATELET COUNT 269 10x3/uL (130-400); RBC 4.75 10x6/uL (4.00-5.40); RDW 13.9 % (11.5-14.5); WBC 5.7 10x3/uL (4.8-10.8)
[2018-01-28 09:58] LABS: APTT 32.1 SECONDS (22.8-39.4); INR 0.96 (0.85-1.17); PROTIME 12.4 SECONDS (11.6-15.0)
[2018-01-28 10:08] LABS: HELICOBACTER PYLORI IGG NEGATIVE (NEGATIVE)
[2018-01-28 10:15] LABS: ALBUMIN 3.8 g/dL (3.4-5.0); ALKALINE PHOSPHATASE 67 U/L (46-116); ALT (SGPT) 34 U/L (10-68); BILIRUBIN - DIRECT 0.06 mg/dL (0.00-0.30); BILIRUBIN - INDIRECT 0.25 mg/dL (0.00-1.00); BILIRUBIN - TOTAL 0.31 mg/dL (0.2-1.3); CALC OSMOLALITY 275 mosm/kg (275-300); CARBON DIOXIDE 30.9 mmol/L (21.0-32.0); CHLORIDE - SERUM 102 mmol/L (98-107); CHOL - HDL RATIO 5.6 ratio (2.3-4.1); CHOLESTEROL, TOTAL 239 mg/dL (0-200); CREATININE - SERUM 0.6 mg/dL (0.6-1.3); GLUCOSE 97 mg/dL (74-106); HDL CHOLESTEROL 43 mg/dL (32-96); LDL CHOLESTEROL 169 mg/dL (0-100); LDL-HDL RATIO 3.9 ratio (1.5-3.5); POTASSIUM - SERUM 4.2 mmol/L (3.5-5.1); PROTEIN - SERUM 7.7 g/dL (6.4-8.2); SODIUM 137 mmol/L (136-145); T4 THYROXINE 8.7 ug/dL (4.7-13.3); THYROID STIMULATING HORMONE 0.83 uIU/mL (0.36-3.74); TRIGLYCERIDE 137 mg/dL (30-200); UREA NITROGEN 19 mg/dL (7-18); eGFR NON AFRICAN AMERICAN > 90 mL/min (90-120)
[2018-01-29 07:26] LABS: FOLATE (FOLIC ACID) - SERUM >20.0 ng/mL (>3.0)
== END | disposition home or self-care (01) ==
LOC: D.RAD 08:07
PROVIDERS: Surgery
DX: E66.01 Morbid (severe) obesity due to excess calories (principal); K21.9 Gastro-esophageal reflux disease without esophagitis; I10 Essential (primary) hypertension

== ENCOUNTER 2018-02-21 08:03 | Day surgery (SDC) | payer BC ==
[~2018-02-21] VITALS: Ht 165.1 cm; Wt 159.5 kg
[2018-02-21 08:27] LABS: HEMATOCRIT 41.9 % (36.0-48.0); HEMOGLOBIN 13.7 g/dL (12-16); MCH 28.6 pg (26.0-34.0); MCHC 32.7 g/dL (31.0-37.0); MCV 87.5 fL (80.0-100.0); MEAN PLATELET VOLUME 9.3 fL (7.4-10.4); RBC 4.79 10x6/uL (4.00-5.40); WBC 6.3 10x3/uL (4.8-10.8)
[2018-02-21 08:55] VITALS: BP 123/85; Ht 165.1 cm; Wt 159.5 kg
== END 2018-02-21 10:45 | disposition home or self-care (01) ==
LOC: D.OPS 08:03
PROVIDERS: Anesthesiology
DX: K21.9 Gastro-esophageal reflux disease without esophagitis (principal); E66.01 Morbid (severe) obesity due to excess calories

== ENCOUNTER 2018-03-15 11:29 | Outpatient (CLI) | payer BC ==
[2018-02-21 08:55] VITALS: BMI 58.5
== END 2018-03-15 12:40 ==
LOC: D.OPS 11:29
DX: E66.01 Morbid (severe) obesity due to excess calories (principal); Z01.812 Encounter for preprocedural laboratory examination

== ENCOUNTER → 2018-04-14 10:19 | Outpatient (CLI) | payer BC ==
[2018-02-21 08:55] VITALS: BMI 58.5
== END | disposition home or self-care (01) ==
LOC: D.CT 10:19
DX: R93.89 Abnormal findings on diagnostic imaging of other specified body structures (principal)

== ENCOUNTER 2018-05-16 07:20 | Inpatient (IN) | payer BC ==
[2018-05-13 10:41] LABS: HEMATOCRIT 43.6 % (36.0-48.0); HEMOGLOBIN 14.5 g/dL (12-16); MCHC 33.3 g/dL (31.0-37.0); MCV 87.2 fL (80.0-100.0); MEAN PLATELET VOLUME 9.4 fL (7.4-10.4); RDW 13.6 % (11.5-14.5); WBC 7.1 10x3/uL (4.8-10.8)
[2018-05-16] VITALS (7 sets, daily range): BP systolic 136–171; BP diastolic 71–101; Ht 165.1 cm; Wt 150.0 kg
[~2018-05-16] VITALS: Ht 165.1 cm; Wt 150.0 kg
[~2018-05-16 07:20] MED LIST changes: +ACETAMINOPHEN500 M1 PO
[2018-05-17] VITALS: BP 120/55
[2018-05-17 05:08] VITALS: BP 124/67
[2018-05-17 06:08] LABS: BASOPHILS 0.1 % (0-2); EOSINOPHILS 0 % (0-7); HEMATOCRIT 38.2 % (36.0-48.0); HEMOGLOBIN 12.5 g/dL (12-16); IMMATURE GRANULOCYTES 0.2 % (0-5); LYMPHOCYTES 13.3 % (15-50); MCH 28.7 pg (26.0-34.0); MCHC 32.7 g/dL (31.0-37.0); MCV 87.6 fL (80.0-100.0); MEAN PLATELET VOLUME 10.3 fL (7.4-10.4); MONOCYTES 8.3 % (2-11); NEUTROPHILS 78.1 % (40-80); PLATELET COUNT 271 10x3/uL (130-400); RBC 4.36 10x6/uL (4.00-5.40); WBC 11.2 10x3/uL (4.8-10.8)
[2018-05-17 06:22] LABS: ALBUMIN 3.3 g/dL (3.4-5.0); ALKALINE PHOSPHATASE 58 U/L (46-116); ALT (SGPT) 33 U/L (10-68); BILIRUBIN - TOTAL 0.29 mg/dL (0.2-1.3); CALC OSMOLALITY 277 mosm/kg (275-300); CALCIUM 9.3 mg/dL (8.5-10.1); CARBON DIOXIDE 28.6 mmol/L (21.0-32.0); CHLORIDE - SERUM 102 mmol/L (98-107); CREATININE - SERUM 0.6 mg/dL (0.6-1.3); GLUCOSE 104 mg/dL (74-106); POTASSIUM - SERUM 4.3 mmol/L (3.5-5.1); SODIUM 139 mmol/L (136-145); UREA NITROGEN 12 mg/dL (7-18); eGFR NON AFRICAN AMERICAN > 90 mL/min (90-120)
[2018-05-17 08:21] VITALS: BP 150/59
[2018-05-17] MEDS ORDERED: ZOFRAN ODT4 MG/UDTAB PO (10:12)
[2018-05-17] MEDS ORDERED: HYDROCODON-ACE1 EAC7 PO (10:12)
== END 2018-05-17 11:53 | disposition home or self-care (01) | DRG 621 ==
LOC: D.SDCHOLD 07:20 → D.MS 07:20 → D.SDCHOLD 09:45 → D.MS 14:35
PROVIDERS: Anesthesiology; Surgery
PROC: 0DB64Z3 Excision of Stomach, Percutaneous Endoscopic Approach, Vertical (ICD-10-PCS; principal; 2018-05-16 09:45)
DX: E66.01 Morbid (severe) obesity due to excess calories (principal); Z68.43 Body mass index [BMI] 50.0-59.9, adult; K21.9 Gastro-esophageal reflux disease without esophagitis; I10 Essential (primary) hypertension

== ENCOUNTER → 2018-09-22 16:27 | Outpatient (CLI) | payer SELFPAY ==
[2018-05-16 15:02] VITALS: BMI 55.0
[~2018-09-22 16:27] MED LIST changes: +ZOFRAN ODT4 MG/UDTAB PO
== END | disposition home or self-care (01) ==
LOC: D.LABREF 16:27
PROVIDERS: ATTEND Orthopaedic Surgery
DX: M16.11 Unilateral primary osteoarthritis, right hip (principal)

== ENCOUNTER 2018-10-06 17:42 | Inpatient (IN) | payer OTHER ==
[2018-10-11] MEDS ORDERED: VIACTIV SOFT C1 EACH PO (14:27)
[2018-10-11] MEDS ORDERED: VITAMIN B-12500 MC1 PO (14:29)
[2018-10-11] MEDS ORDERED: MULTIVIT PO (14:30)
[2018-10-11] MEDS ORDERED: PROBIOTIC BLEN1 EACH PO (14:31)
[2018-10-11] MEDS ORDERED: OMEPRAZOLE20 M1 PO (14:31)
[2018-10-11] MEDS ORDERED: STOOL SOFTENER100 M1 PO (14:31)
[2018-10-11] MEDS ORDERED: CYCLOBENZAPRINE10 MG PO (14:32)
[2018-10-12 11:26] LABS: BASOPHILS 0.3 % (0-2); EOSINOPHILS 1.8 % (0-7); HEMATOCRIT 43.9 % (36.0-48.0); HEMOGLOBIN 14.4 g/dL (12-16); IMMATURE GRANULOCYTES 0.2 % (0-5); LYMPHOCYTES 32.7 % (15-50); MCH 29.1 pg (26.0-34.0); MCHC 32.8 g/dL (31.0-37.0); MCV 88.9 fL (80.0-100.0); MEAN PLATELET VOLUME 9.9 fL (7.4-10.4); MONOCYTES 10.7 % (2-11); NEUTROPHILS 54.3 % (40-80); PLATELET COUNT 259 10x3/uL (130-400); RBC 4.94 10x6/uL (4.00-5.40); RDW 13.7 % (11.5-14.5); WBC 6.6 10x3/uL (4.8-10.8)
[2018-10-12 11:38] LABS: APTT 34.8 SECONDS (22.8-39.4); INR 1.11 (0.85-1.17); PROTIME 13.8 SECONDS (11.6-15.0)
[2018-10-12 12:00] LABS: ALBUMIN 3.7 g/dL (3.4-5.0); ALKALINE PHOSPHATASE 71 U/L (46-116); ALT (SGPT) 19 U/L (10-68); BILIRUBIN - TOTAL 0.35 mg/dL (0.2-1.3); CALC OSMOLALITY 282 mosm/kg (275-300); CALCIUM 9.4 mg/dL (8.5-10.1); CARBON DIOXIDE 31.1 mmol/L (21.0-32.0); CHLORIDE - SERUM 102 mmol/L (98-107); CHOL - HDL RATIO 4.5 ratio (2.3-4.1); CHOLESTEROL, TOTAL 190 mg/dL (0-200); CREATININE - SERUM 0.7 mg/dL (0.6-1.3); FERRITIN 77 ng/mL (3-244); GLUCOSE 89 mg/dL (74-106); HDL CHOLESTEROL 42 mg/dL (32-96); LDL CHOLESTEROL 122 mg/dL (0-100); LDL-HDL RATIO 2.9 ratio (1.5-3.5); PROTEIN - SERUM 7.7 g/dL (6.4-8.2); SODIUM 141 mmol/L (136-145); TRIGLYCERIDE 133 mg/dL (30-200); UREA NITROGEN 22 mg/dL (7-18); eGFR NON AFRICAN AMERICAN > 90 mL/min (90-120)
[2018-10-12 12:38] LABS: APPEARANCE CLOUDY (CLEAR); COLOR YELLOW (YELLOW); GLUCOSE NEGATIVE (NEGATIVE); KETONE NEGATIVE (NEGATIVE); NITRITE NEGATIVE (NEGATIVE); PROTEIN TRACE mg/dL (NEGATIVE); UROBILINOGEN NORMAL (NORMAL)
[2018-10-12 12:39] LABS: BACTERIA MODERATE /hpf (NONE SEEN); BILIRUBIN NEGATIVE (NEGATIVE); EPITHELIAL CELLS 0-5 /hpf (0-5); RED CELLS - URINE RARE /hpf (0-5)
[2018-10-12 12:40] LABS: MUCUS <1+ /lpf (NONE SEEN)
[2018-10-18] MEDS ORDERED: BACTRIM 400-801 TAB PO (08:53)
[2018-10-18 09:18] VITALS: BP 129/73; BMI 45.1
--- NOTE | 2018-10-18 14:02 | NUR ---
PLASMA BLADE SET 6/8 BOVIE PAD LEFT THIGH [id number] EXP 04/11/2020
[2018-10-18 17:01] VITALS: BP 121/50
--- NOTE | 2018-10-18 17:06 | NUR ---
PT ARRIVED TO UNIT TO ROOM 2212 OREINTEATED TO ROOM CL IN REACH FAMILY AT BEDSIDE
[2018-10-18 18:23] VITALS: BMI 45.1
--- NOTE | 2018-10-18 20:00 | NUR ---
PT SITTING UP IN BED, NO SIGNS OF DISTRESS. ALERT AND ORIENTED. AT BEDSIDE. DRESSING TO RIGHT HIP CDI WITH PROVENA WOUND VAC. SCDS IN PLACE. ABRAN HOSE TO LEFT LEG. PT STATES PAIN 5/10. GAVE OXY 5 ORDERED. ENCOURAGED PT TO DRINK SOME FLUIDS TO TRY TO VOID. IV LEFT FA INFUSING NS @ 50. O2 4L/NC. DENIES OTHER NEEDS AT THIS TIME. BED ALARM ON. CL IN REACH, WILL CONT TO MONITO
[2018-10-18 20:57] VITALS: BP 107/90
--- NOTE | 2018-10-19 01:00 | NUR ---
PT VOIDED 200ML
[2018-10-19 01:42] VITALS: BP 152/76
[2018-10-19 04:56] LABS: HEMATOCRIT 34.4 % (36.0-48.0); HEMOGLOBIN 11.4 g/dL (12-16); MCH 29.2 pg (26.0-34.0); MCHC 33.1 g/dL (31.0-37.0); MEAN PLATELET VOLUME 10.1 fL (7.4-10.4); RBC 3.91 10x6/uL (4.00-5.40); RDW 13.6 % (11.5-14.5); WBC 15.6 10x3/uL (4.8-10.8)
[2018-10-19 05:24] VITALS: BP 98/54
[2018-10-19 08:56] VITALS: BP 118/69
--- NOTE | 2018-10-19 12:31 | MORECARE ---
CASE MANAGEMENT DISCHARGE SUMMARY PATIENT: SHAWN MORALES UNIT: [id number] ADM DATE: 10/18/18 AGE: 53 : 69 SEX: F ROOM/BED: D.2212 AUTHOR: MARY SCHWAB PHYSICIAN: REFERRING PHYSICIAN: HUMBERTO LIVINGSTON DO DATE OF SERVICE: 10/19/18 Discharge Plan Patient Name: SHAWN MORALES [facility] [facility] 1965 Planned Disposition: Home or Self Care Anticipated Discharge Date: Discharge Date: Expected LOS: Initial Reviewer: [email or web address] Initial Review Date: 10/18/2018 Generated: 10/19/18 1:30 pm DCPIA - Discharge Planning Initial Assessment Updated by [email or web address]: Chastity Cormier on 10/19/18 12:30 pm * Is the patient Alert and Oriented? Yes * How many steps to enter\exit or inside your home? * PCP CAT * Pharmacy [facility] * Preadmission Environment Home with Family * ADLs Independent * Equipment Bedside Commode Walker * List name and contact numbers for known caregivers / representatives who currently or will assist patient after discharge: FE () [phone] * Verbal permission to speak to the caregivers and representatives has been obtained from the patient. N/A * Community resources currently utilized None * Additional services required to return to the preadmission environment? Yes * Can the patient safely return to the preadmission environment? Yes * Has this patient been hospitalized within the prior 30 days at any hospital? No Patient Name: SHAWN MORALES Page [phone] at 1231 All edits/amendments must be made on the electronic document DICTATION DATE: 10/19/18 1230 ORGANIZATION DEVELOPMENT CONSULTANT: PAT 10/19/18 1230 RPT#: [id number] DC DATE: STATUS: ADM IN [facility] [address] [place] [address] END OF REPORT
--- NOTE | 2018-10-19 12:41 | MORECARE ---
CASE MANAGEMENT DISCHARGE SUMMARY PATIENT: SHAWN MORALES UNIT: [id number] ADM DATE: 10/18/18 AGE: 53 : 69 SEX: F ROOM/BED: D.2212 AUTHOR: JOSSELINDOC PHYSICIAN: REFERRING PHYSICIAN: HUMBERTO LIVINGSTON DO DATE OF SERVICE: 10/19/18 Discharge Plan Patient Name: SHAWN MORALES Facility: [facility]:[place] : 1965 Planned Disposition: Home or Self Care Anticipated Discharge Date: Discharge Date: Expected LOS: Initial Reviewer: [email or web address] Initial Review Date: 10/18/2018 Generated: 10/19/18 1:41 pm Comments DCP- Discharge Planning Updated by [email or web address]: Chastity Cormier on 10/19/18 11:[address] Patient Name: SHAWN MORALES Admission Status: Elective Accout number: [id number] Admission Date: 10-18-2018 : 1965 Admission Diagnosis: Attending: HUMBERTO LIVINGSTON Current LOS: 1 Anticipated DC Date: Planned Disposition: Home or Self Care Primary Insurance: [employer] PPO Discharge Planning Comments: CM met with patient to complete initial dc planning assessment. CM educated patient on the CM role and verbal consent given by patient to complete assessment. Patient lives at home with her and is independent there. At discharge patient plans to return home and feels this is a safe discharge. CM discussed availability of home health, rehab services, and medical equipment. She plans to do OP PT at [facility]. She has a walker at home and her is to crab picker her BSC from [facility] that was set up by Dr Gunter office. I will make her first OP PT appointment. Patient denied known discharge needs at this time. CM will continue to follow and will assist as needed with dc plans/needs. Plumbing And Heating Contractor: Chastity Cormier DCPIA - Discharge Planning Initial Assessment Updated by [email or web address]: Chastity Cormier on 10/19/18 12:30 pm * Is the patient Alert and Oriented? Yes * How many steps to enter\exit or inside your home? * PCP PULLIG * [facility]acy [facility] * Preadmission Environment Home with Family * ADLs Independent * Equipment Bedside Commode Walker * List name and contact numbers for known caregivers / representatives who currently or will assist patient after discharge: FE () [phone] * Verbal permission to speak to the caregivers and representatives has been obtained from the patient. N/A * Community resources currently utilized None * Additional services required to return to the preadmission environment? Yes * Can the patient safely return to the preadmission environment? Yes * Has this patient been hospitalized within the prior 30 days at any hospital? No Last DP export: 10/19/18 11:30 a Patient Name: SHAWN MORALES Page 85854 at 1241 All edits/amendments must be made on the electronic document DICTATION DATE: 10/19/181239 CRIMINALIST: PAT 10/19/181239 RPT#: [id number] DC DATE: STATUS: ADM IN [facility] [address] [place] [address] END OF REPORT
[2018-10-19 12:50] VITALS: BMI 45.0
[2018-10-19 13:26] VITALS: BP 116/70
--- NOTE | 2018-10-19 14:46 | MORECARE ---
CASE MANAGEMENT DISCHARGE SUMMARY PATIENT: SHAWN MORALES UNIT: [id number] ADM DATE: 10/18/18 AGE: 53 : 69 SEX: F ROOM/BED: D.2212 AUTHOR: MARY SCHWAB PHYSICIAN: REFERRING PHYSICIAN: HUMBERTO LIVINGSTON DO DATE OF SERVICE: 10/19/18 Discharge Plan Patient Name: SHAWN MORALES Facility: [facility]:[place] : 1965 Planned Disposition: Home or Self Care Anticipated Discharge Date: Discharge Date: Expected LOS: Initial Reviewer: [email or web address] Initial Review Date: 10/18/2018 Generated: 10/19/18 3:45 pm Comments DCP- Discharge Planning Updated by [email or web address]: Chastity Cormier on 10/19/18 1:[address] OP PT APPOINTMENT MADE FOR WednesdaySeptember @ 10:45 SPOKE WITH EAGLE COPY WILL BE GIVEN TO PATIENT AT DISCHARGE DCP- Discharge Planning Updated by [email or web address]: Chastity Cormier on 10/19/18 11:[address] Patient Name: SHAWN MORALES Admission Status: Elective Accout number: [id number] Admission Date: 10-18-2018 : 1965 Admission Diagnosis: Attending: HUMBERTO LIVINGSTON Current LOS: 1 Anticipated DC Date: Planned Disposition: Home or Self Care Primary Insurance: [employer] PPO Discharge Planning Comments: CM met with patient to complete initial dc planning assessment. CM educated patient on the CM role and verbal consent given by patient to complete assessment. Patient lives at home with her and is independent there. At discharge patient plans to return home and feels this is a safe discharge. CM discussed availability of home health, rehab services, and medical equipment. She plans to do OP PT at [facility]. She has a walker at home and her is to pepper picker her BSC from [facility] that was set up by Dr Gunter office. I will make her first OP PT appointment. Patient denied known discharge needs at this time. CM will continue to follow and will assist as needed with dc plans/needs. Fleet Administrator: Chastity Cormier DCPIA - Discharge Planning Initial Assessment Updated by [email or web address]: Chastity Cormier on 10/19/18 12:30 pm * Is the patient Alert and Oriented? Yes * How many steps to enter\exit or inside your home? * PCP CAT * Pharmacy [facility] * Preadmission Environment Home with Family * ADLs Independent * Equipment Bedside Commode Walker * List name and contact numbers for known caregivers / representatives who currently or will assist patient after discharge: FE () [phone] * Verbal permission to speak to the caregivers and representatives has been obtained from the patient. N/A * Community resources currently utilized None * Additional services required to return to the preadmission environment? Yes * Can the patient safely return to the preadmission environment? Yes * Has this patient been hospitalized within the prior 30 days at any hospital? No Last DP export: 10/19/18 11:41 a Patient Name: SHAWN MORALES Page [id number] at 1446 All edits/amendments must be made on the electronic document DICTATION DATE: 10/19/181444 ROD FILLER: PAT 10/19/181444 RPT#: [id number] DC DATE: STATUS: ADM IN [facility] [address] [place] [address] END OF REPORT
--- NOTE | 2018-10-19 16:37 | OP ---
PATIENT NAME: SHAWN CHI MEDICAL RECORD: [id number] :69 LOCATION:D.[facility] ADMISSION DATE:10/18/18 SURGEON: KARTIK LIVINGTSON DO DATE OF OPERATION: 10/18/2018 PROCEDURE PERFORMED: Right total hip arthroplasty. PREOPERATIVE DIAGNOSIS: Right hip osteoarthritis. POSTOPERATIVE DIAGNOSIS: Right hip osteoarthritis. INDICATIONS: Ms. Chi is a 53-year-old female who has been seen by myself for over a year. She was morbidly obese. I informed her that we could try injections in the hip. She does have severe hip arthritis. She had the left hip replaced years ago and the right hip has been bothering her for a long time. Due to her weight, it was very difficult and I told her that she would increase her risk of infection, bleeding, need for further surgery, fracture, and she was aware of that and she lost 100 pounds and I told her that was about what she had to lose and holding up my end of the bargain, I told her I would do her hip. She was put on for today. She was aware of the risks including infection, bleeding, damage to nerves and vessels, need for further surgery. She was also concerned that the right leg was longer than her left. The left leg had been quite lengthened in the previous hip surgery in order to make up for that, but is still approximately a centimeter longer than the left. I told her we could try to shorten it, but I would not want to shorten it too much in order to sacrifice stability. She was okay with that, but she would like it shortened some and I informed her I would do that. She is also aware of the risk of blood clots and even . She signed her consent. SURGEON: Kartik Livingston DO DESCRIPTION OF THE PROCEDURE: The patient received a block by anesthesia in the preoperative area, was taken to the operating suite, given anesthetic and intubated. She was then moved over to the [place] table and positioned. The right hip was prepped and draped in sterile fashion. A timeout was performed, everyone was in agreement as to the correct side, site, patient and procedure. The incision was then marked out over the tensor fascia faviola muscle. She was given a gram of TXA and 3 grams of Ancef and 80 mg gentamicin. The incision then began with #10 blade scalpel and then the plasma blade was used to dissect down to the tensor fascia faviola fascia. The fascia was then incised. The fascia was taken superiorly and the muscle inferiorly. I then opened the rectus interval. The fascia was incised over the rectus and the rectus was taken medially, the tensor fascia faviola laterally. The ascending branch of the lateral femoral circumflex artery and vessels were tied off at that time and coagulated with Aquamantys and cut with the plasma blade. The hip capsule was then exposed with Homans' on either side of it and the capsule was then opened. Once the capsule was opened, it was tagged and brought laterally and then Hohmanns were brought inside the capsule around the neck. The neck cut was then made and the head was removed. The trial was then put in and the labrum was removed off of the acetabulum as well as the ligamentum teres. All bleeding was coagulated with Aquamantys. She was oozing quite a bit. I could not find any specific bleeders at that time. The Aquamantys was used a lot, I used it during surgery for any obvious bleeders. We then began reaming first medializing and then reaming up to a 52 under fluoroscopy. The 52 cup was impacted into place, fit very well. The femur was then exposed by externally rotating the femur and OPERATIVE REPORT [id number] SHAWN CHI cleaning it and the canal finder was used and then the elizabeth cutter and then broaching began from the 4 up to a 12. The 12 fit very well, then we trialed the standard neck knowing that she had a +6 on the other side. This reduced very easily. I was afraid we would lose some stability. We then decided to a +3, but the stem fit very well and it was shortened. The trial was then removed and the 12 stem was impacted in and the dual mobility head was put on with a +3 neck. This was then reduced. X-rays were taken and seemed to be shortened slightly, not significantly, and had good stability with internal and external rotation, and it was all small ball and big ball movement. On x-ray, the stem fit very well. X-rays were done and no fractures were seen in the femur. The length was good, was shortened slightly on the right compared to the left. Irrigation was then done and any bleeding was coagulated at that time with Aquamantys. She was given another gram of TXA and Surgicel powder was placed in the wound and tobramycin and vancomycin powder also. The tensor fascia faviola fascia was then closed first with a yysysj-au-jkjbw with #2 Ethibond and then a running locking stitch of #1 Vicryl. The skin was then closed with 2-0 Vicryl in inverted interrupted fashion and 4-0 Monocryl ran on the skin and then a Prevena was placed due to her pannus being over the incision, Prevena was put on the incision. She was then awakened and taken to recovery in stable condition. Blood loss was 400 mL. COMPLICATIONS: None. TRANSINT:[id number] Voice Confirmation ID: [id number] DOCUMENT ID: [id number] KARTIK LIVINGSTON DO at 1637 CC: [id number] DICTATION DATE: 10/18/18 1519 PRE SALES SYSTEMS ENGINEER: 10/18/18 1623 ADM IN [facility] [id number] [place] [address]
[2018-10-19 17:25] VITALS: BP 116/72
[2018-10-19 20:00] VITALS: BP 104/55
--- NOTE | 2018-10-19 21:00 | NUR ---
RESTING QUEITLY WITH NO DISTRESS NOTED. RESP UNLABORED. IV INFSUING TO LFA WITHOUT REDNESS OR EDEMA NOTED. RIGHT HIP DRESSING INTACT [facility]IH PROVENA INTACT. NO COMPLAITNS VOICED. CL IN REACH
[2018-10-19 21:34] LABS: APPEARANCE CLEAR (CLEAR); BILIRUBIN NEGATIVE (NEGATIVE); COLOR YELLOW (YELLOW); GLUCOSE NEGATIVE (NEGATIVE); KETONE NEGATIVE (NEGATIVE); NITRITE NEGATIVE (NEGATIVE); PROTEIN NEGATIVE (NEGATIVE); UROBILINOGEN NORMAL (NORMAL)
[2018-10-19 21:35] LABS: BACTERIA FEW /hpf (NONE SEEN); RED CELLS - URINE 0-5 /hpf (0-5); WHITE CELLS - URINE 0-5 /hpf (0-5)
[2018-10-20] VITALS: BP 111/58
--- NOTE | 2018-10-20 03:03 | NUR ---
I have reviewed this patient and I concur with the Shift Assessment completed by the Licensed Practical Nurse today this shift.
[2018-10-20 04:00] VITALS: BP 111/55
[2018-10-20 05:03] LABS: MCH 28.9 pg (26.0-34.0); MCHC 33.1 g/dL (31.0-37.0); MCV 87.4 fL (80.0-100.0); MEAN PLATELET VOLUME 9.5 fL (7.4-10.4); RDW 13.5 % (11.5-14.5)
[2018-10-20 05:07] LABS: HEMATOCRIT 26.3 % (36.0-48.0); HEMOGLOBIN 8.7 g/dL (12-16); RBC 3.01 10x6/uL (4.00-5.40); WBC 7.7 10x3/uL (4.8-10.8)
[2018-10-20 08:15] VITALS: BP 106/58
--- NOTE | 2018-10-20 08:45 | NUR ---
PATIENT IN BED WITH IV INTACT. NO COMPLAINTS OR SIGNS OF DISTRESS. BSCDS ON. CALL LIGHT WITHIN REACH.
--- NOTE | 2018-10-20 09:13 | NUR ---
PATIENT IV LEAKING. REMOVED WITH CATH TIP INTACT. RESTARTED IN LEFT ARM X 1 STICK. CALL LIGHT WITHIN REACH.
[2018-10-20 12:24] VITALS: BP 97/60
[2018-10-20 16:26] VITALS: BP 109/57
--- NOTE | 2018-10-20 19:30 | NUR ---
ASSISTED ONTO BEDPAN TO VOID. REPORTS PAIN 4 BUT DENIES NEED FOR PAIN MED. PROVINA WOUND VAC TO RT HIP. BRUISE NOTED TO RT HIP. SCDS ON BILAT. RESP EVEN AND NONLABORED. NS @ 20 MLHR INFUSING IN LT FOREARM WITHOUT DIFF. FAMILY AT BEDSIDE. ALERT AND ORIENTED X4. CL IN REACH. PEDAL PULSES GOOD.
[2018-10-20 20:00] VITALS: BP 108/59
[2018-10-21] VITALS: BP 126/66
[2018-10-21 04:00] VITALS: BP 121/65
[2018-10-21 06:20] LABS: BASOPHILS 0.3 % (0-2); EOSINOPHILS 3.6 % (0-7); HEMATOCRIT 25.1 % (36.0-48.0); HEMOGLOBIN 8.2 g/dL (12-16); IMMATURE GRANULOCYTES 0.4 % (0-5); LYMPHOCYTES 27.9 % (15-50); MCH 28.5 pg (26.0-34.0); MCHC 32.7 g/dL (31.0-37.0); MCV 87.2 fL (80.0-100.0); MEAN PLATELET VOLUME 9.9 fL (7.4-10.4); NEUTROPHILS 54.8 % (40-80); PLATELET COUNT 222 10x3/uL (130-400); RBC 2.88 10x6/uL (4.00-5.40); RDW 13.3 % (11.5-14.5); WBC 6.9 10x3/uL (4.8-10.8)
[2018-10-21 06:47] LABS: CALC OSMOLALITY 274 mosm/kg (275-300); CALCIUM 8.9 mg/dL (8.5-10.1); CARBON DIOXIDE 31.8 mmol/L (21.0-32.0); CHLORIDE - SERUM 101 mmol/L (98-107); CREATININE - SERUM 0.6 mg/dL (0.6-1.3); GLUCOSE 88 mg/dL (74-106); POTASSIUM - SERUM 3.5 mmol/L (3.5-5.1); SODIUM 138 mmol/L (136-145); UREA NITROGEN 12 mg/dL (7-18); eGFR NON AFRICAN AMERICAN > 90 mL/min (90-120)
--- NOTE | 2018-10-21 08:00 | NUR ---
ASSESSMENT PER FLOW SHEET. PT IS WITHOUT DISTRESS.DRESSING RIGHT HIP CDI WITH PREVENA IN PLACE.MONITOR FOR NEEDS.CALL LIGHT IN REACH
[2018-10-21 09:00] VITALS: BP 101/56
[2018-10-21 13:23] VITALS: BP 111/69
[2018-10-21 17:22] VITALS: BP 116/61
--- NOTE | 2018-10-21 18:51 | NUR ---
REMAINS WITHOUT CHANGE FROM INITIAL SHIFT ASSESSMENT.CONT PLAN OF CARE
--- NOTE | 2018-10-21 19:15 | NUR ---
RECEIVED CARE FROM DAY NURSE. LYING IN BED WATCHING TV. REPORTS NO NEEDS AT THIS TIME. CALL LIGHT AT SIDE. IV AT KVO TO LEFT FA.
[2018-10-21 19:47] VITALS: BP 107/60
[2018-10-22] VITALS: BP 123/66
--- NOTE | 2018-10-22 01:03 | NUR ---
I have reviewed this patient and I concur with the Shift Assessment completed by the Licensed Practical Nurse today this shift.
--- NOTE | 2018-10-22 03:42 | NUR ---
I have reviewed this patient and I concur with the Shift Assessment completed by the Licensed Practical Nurse today this shift.
[2018-10-22 04:00] VITALS: BP 109/60
--- NOTE | 2018-10-22 04:55 | NUR ---
PT LYING IN BED WITH EYES OPEN, RR EVEN AND UNLABORED. BED IN LOW POSITION. NO S/S OF DISTRESS NOTED. CALL LIGHT IN REACH, WILL CTM.
[2018-10-22 06:54] LABS: BASOPHILS 0.4 % (0-2); EOSINOPHILS 3.7 % (0-7); IMMATURE GRANULOCYTES 0.7 % (0-5); LYMPHOCYTES 28.4 % (15-50); MCH 29.1 pg (26.0-34.0); MCHC 33.3 g/dL (31.0-37.0); MCV 87.3 fL (80.0-100.0); MEAN PLATELET VOLUME 9.5 fL (7.4-10.4); MONOCYTES 11.8 % (2-11); PLATELET COUNT 231 10x3/uL (130-400); RBC 2.75 10x6/uL (4.00-5.40); RDW 13.4 % (11.5-14.5)
[2018-10-22 07:12] LABS: CALC OSMOLALITY 274 mosm/kg (275-300); CALCIUM 9.1 mg/dL (8.5-10.1); CARBON DIOXIDE 33.1 mmol/L (21.0-32.0); CHLORIDE - SERUM 101 mmol/L (98-107); CREATININE - SERUM 0.5 mg/dL (0.6-1.3); GLUCOSE 90 mg/dL (74-106); POTASSIUM - SERUM 3.9 mmol/L (3.5-5.1); SODIUM 138 mmol/L (136-145); UREA NITROGEN 11 mg/dL (7-18); eGFR NON AFRICAN AMERICAN > 90 mL/min (90-120)
--- NOTE | 2018-10-22 08:07 | NUR ---
ALERT AND ORIENTEDX3 WITH DRESSING DRY AND INTACT TO RT. HIP. PREOVENTA WOUND VAC INTACT. UP WITH SBA. PEDAL PULSES NOTED W/O EDEMA. DENIES ANY PAIN OR DISCOMFORT AT THIS TIME. ENCOURAGED TO USE CALL LIGHT FOR ASSSIT. UP TO BSC AT THIS TIME WITH SBA.
[2018-10-22 08:35] VITALS: BP 101/61
--- NOTE | 2018-10-22 11:02 | NUR ---
STARTED 1ST UNIT PRBC'S WITH NO S/S OF REACTION NOTED WITH FAMILY PRESENT.
--- NOTE | 2018-10-22 13:44 | NUR ---
1ST UNIT PRBC'S FINISHED WITH NO S/S OF REACTION. SECOND UNIT STARTED WITH PT. SITTING UP IN RECLINER W/O ANY S/S OF REACTION NOTED AT THIS TIME
--- NOTE | 2018-10-22 16:40 | NUR ---
FINISHED SECOND UNIT PRBC'S WITH NO S/S OF REACTION NOTED. UP AMBULATING WITH THERAPY WITH R/WALKER WTIH THERAPY.
[2018-10-22] MEDS ORDERED: VISTARIL50 MG PO (16:46)
[2018-10-22] MEDS ORDERED: ELIQUIS2.5 MG PO (16:46)
[2018-10-22] MEDS ORDERED: OXYCODONE HCL5 M1 PO (16:46)
--- NOTE | 2018-10-22 18:20 | NUR ---
PT IV DISCONTINUED AND VERBALIZED UNDERSTANDING OF DISCHARGE INSTRUCTIONS. TRANSFERED WITH STANDBY ASSIST WITH WALKER TO W/C. STABLE AT TIME OF DEPARTURE.
--- NOTE | 2018-10-23 15:08 | MORECARE ---
CASE MANAGEMENT DISCHARGE SUMMARY PATIENT: SHAWN MORALES UNIT: [id number] ADM DATE: 10/18/18 AGE: 53 : 69 SEX: F ROOM/BED: D.2212 AUTHOR: MARY SCHWAB PHYSICIAN: REFERRING PHYSICIAN: HUMBERTO LIVINGSTON DO DATE OF SERVICE: 10/23/18 Discharge Plan Patient Name: SHAWN MORALES Facility[facility]:[place] : 1965 Planned Disposition: Home or Self Care Anticipated Discharge Date: Discharge Date: 10/22/2018 Expected LOS: Initial Reviewer: [email or web address] Initial Review Date: 10/18/2018 Generated: 10/23/18 4:08 pm Comments DCP- Discharge Planning Updated by [email or web address]: Chastity Cormier on 10/19/18 1:[address] OP PT APPOINTMENT MADE FOR WednesdaySeptember @ 10:45 SPOKE WITH EAGLE COPY WILL BE GIVEN TO PATIENT AT DISCHARGE DCP- Discharge Planning Updated by [email or web address]: Chastity Cormier on 10/19/18 11:[address] Patient Name: SHAWN MORALES Admission Status: Elective Accout number: [id number] Admission Date: 10-18-2018 : 1965 Admission Diagnosis: Attending: HUMBERTO LIVINGSTON Current LOS: 1 Anticipated DC Date: Planned Disposition: Home or Self Care Primary Insurance: [employer] PPO Discharge Planning Comments: CM met with patient to complete initial dc planning assessment. CM educated patient on the CM role and verbal consent given by patient to complete assessment. Patient lives at home with her and is independent there. At discharge patient plans to return home and feels this is a safe discharge. CM discussed availability of home health, rehab services, and medical equipment. She plans to do OP PT at [facility]. She has a walker at home and her is to nut picker her BSC from [facility] that was set up by Dr Gunter office. I will make her first OP PT appointment. Patient denied known discharge needs at this time. CM will continue to follow and will assist as needed with dc plans/needs. Salvage Winder: Chastity Cormier DCPIA - Discharge Planning Initial Assessment Updated by [email or web address]: Chastity Cormier on 10/19/18 12:30 pm * Is the patient Alert and Oriented? Yes * How many steps to enter\exit or inside your home? * PCP CAT * Pharmacy [facility] * Preadmission Environment Home with Family * ADLs Independent * Equipment Bedside Commode Walker * List name and contact numbers for known caregivers / representatives who currently or will assist patient after discharge: FE () [phone] * Verbal permission to speak to the caregivers and representatives has been obtained from the patient. N/A * Community resources currently utilized None * Additional services required to return to the preadmission environment? Yes * Can the patient safely return to the preadmission environment? Yes * Has this patient been hospitalized within the prior 30 days at any hospital? No Last DP export: 10/19/18 1:45 p Patient Name: SHAWN MORALES Page [id number] at 1508 All edits/amendments must be made on the electronic document DICTATION DATE: 10/23/188 NEEDLE PUNCH MACHINE OPERATOR: PAT 10/23/18 1508 RPT#: [id number] DC DATE:10/22/18 STATUS: DIS IN [facility] [address] [place] [address] END OF REPORT
== END 2018-10-22 18:20 | disposition home or self-care (01) | DRG 470 ==
LOC: D.SDCHOLD 10-12 10:00 → D.MS 10-18 07:15 → D.SDCHOLD 10-18 07:15 → D.MS 10-18 16:25
PROVIDERS: Internal Medicine Nephrology; ADMIT Orthopaedic Surgery; ATTEND Orthopaedic Surgery
PROC: 0SR90J9 Replacement of Right Hip Joint with Synthetic Substitute, Cemented, Open Approach (ICD-10-PCS; principal; 2018-10-18 14:30)
DX: M16.11 Unilateral primary osteoarthritis, right hip (principal); D62 Acute posthemorrhagic anemia; E66.01 Morbid (severe) obesity due to excess calories; I10 Essential (primary) hypertension; K21.9 Gastro-esophageal reflux disease without esophagitis

== ENCOUNTER → 2018-10-12 11:07 | Outpatient (CLI) | payer OTHER ==
[2018-05-16 15:02] VITALS: BMI 55.0
[~2018-10-12 11:07] MED LIST changes: +CYCLOBENZAPRINE10 MG PO; +MULTIVIT PO; +PROBIOTIC BLEN1 EACH PO; +STOOL SOFTENER100 M1 PO; +VIACTIV SOFT C1 EACH PO; +VITAMIN B-12500 MC1 PO
--- NOTE | 2018-10-12 12:45 | NUR ---
1245-UA RESULTS CALLED TO DR LOYD OFFICE, SPOKE WITH LULY.
== END | disposition home or self-care (01) ==
LOC: D.LAB 11:07
PROVIDERS: ATTEND Surgery
DX: Z01.812 Encounter for preprocedural laboratory examination (principal); Z00.00 Encounter for general adult medical examination without abnormal findings; K21.9 Gastro-esophageal reflux disease without esophagitis; I10 Essential (primary) hypertension; E78.5 Hyperlipidemia, unspecified

== ENCOUNTER 2019-03-10 08:00 | Outpatient (CLI) | payer OTHER ==
[~2019-03-10 08:00] MED LIST changes: +BACTRIM 400-801 TAB PO; +ELIQUIS2.5 MG PO; +OXYCODONE HCL5 M1 PO; +VISTARIL50 MG PO
== END 2019-03-10 23:56 | disposition home or self-care (01) ==
LOC: D.MAMMO 08:00
PROVIDERS: ATTEND Family Medicine
DX: Z12.31 Encounter for screening mammogram for malignant neoplasm of breast (principal)

== ENCOUNTER 2019-03-27 08:00 | Outpatient (CLI) | payer OTHER | END 2019-03-27 23:59 | disposition home or self-care (01) | LOC: D.MAMMO 08:00 | PROVIDERS: ATTEND Family Medicine | DX: R92.8 Other abnormal and inconclusive findings on diagnostic imaging of breast (principal) ==

== ENCOUNTER → 2019-12-27 19:02 | Outpatient (CLI) | payer OTHER | END | disposition home or self-care (01) | LOC: D.LABREF 19:02 | PROVIDERS: ATTEND Orthopaedic Surgery | DX: M17.12 Unilateral primary osteoarthritis, left knee (principal) ==

== ENCOUNTER 2019-12-28 09:40 | Inpatient (IN) | payer BC ==
[~2019-12-28] VITALS: Ht 165.1 cm; Wt 121.8 kg
[2020-01-09] MEDS ORDERED: MERIBIN5 MG PO (11:18)
[2020-01-09] MEDS ORDERED: LIPITOR20 MG PO (11:27)
[2020-01-10 09:44] LABS: BASOPHILS 0.3 % (0-2); EOSINOPHILS 3.5 % (0-7); HEMATOCRIT 46.4 % (36.0-48.0); IMMATURE GRANULOCYTES 0.2 % (0-5); LYMPHOCYTES 40.2 % (15-50); MCH 28.8 pg (26.0-34.0); MCHC 32.3 g/dL (31.0-37.0); MCV 89.2 fL (80.0-100.0); MEAN PLATELET VOLUME 9.7 fL (7.4-10.4); MONOCYTES 8.5 % (2-11); NEUTROPHILS 47.3 % (40-80); PLATELET COUNT 248 10x3/uL (130-400); RDW 13.3 % (11.5-14.5); WBC 6.5 10x3/uL (4.8-10.8)
[2020-01-10 09:46] LABS: BILIRUBIN NEGATIVE (NEGATIVE); GLUCOSE NEGATIVE (NEGATIVE); KETONE NEGATIVE (NEGATIVE); NITRITE NEGATIVE (NEGATIVE); UROBILINOGEN NORMAL (NORMAL)
[2020-01-10 09:47] LABS: APTT 34.9 SECONDS (22.8-39.4); INR 0.99 (0.85-1.17); PROTIME 13.1 SECONDS (11.6-15.0)
[2020-01-10 09:50] LABS: CALC OSMOLALITY 269 mosm/kg (275-300); CALCIUM 9.8 mg/dL (8.5-10.1); CARBON DIOXIDE 32.4 mmol/L (21.0-32.0); CHLORIDE - SERUM 99 mmol/L (98-107); CREATININE - SERUM 0.8 mg/dL (0.6-1.3); GLUCOSE 87 mg/dL (74-106); POTASSIUM - SERUM 3.9 mmol/L (3.5-5.1); SODIUM 135 mmol/L (136-145); UREA NITROGEN 14 mg/dL (7-18); eGFR NON AFRICAN AMERICAN 80 mL/min (90-120)
[2020-01-16] VITALS (10 sets, daily range): BP systolic 93–136; BP diastolic 56–75; BMI 44.6
--- NOTE | 2020-01-16 16:52 | NUR ---
RECEIVED PATIENT FROM RECOVERY. A&O. VITALS STABLE. NO C/O PAIN. NO S/S OF ACUTE DISTRESS NOTED. ON 3L O2, NC O2 SAT @ 98%. IV TO RIGHT FOREARM, 1/2 NS INFUSING @ 50ML/HR. SITE PATENT WITHOUT REDNESS OR SWELLING. AT BEDSIDE. DENIES ANY NEEDS AT THIS TIME. CALL LIGHT IN REACH. WILL CONTINUE TO MONITOR.
--- NOTE | 2020-01-16 19:25 | NUR ---
A&O RESTING IN BED WITH EYES OPEN. NO C/O PAIN. NO S/S OF ACUTE DISTRESS NOTED. ON CPM. DENIES ANY NEEDS AT THIS TIME. CALL LIGHT IN REACH. WILL CONTINUE TO MONITOR.
--- NOTE | 2020-01-16 20:00 | NUR ---
ALERT RESTING IN BED CPM IN USE, DENIES PAIN OR NEEDS AT THIS TIME, SEE SHIFT ASSESSEMNT, CALL LIGHT IN REACH
[2020-01-17] VITALS: BP 101/55
[2020-01-17 05:00] VITALS: BP 94/52
--- NOTE | 2020-01-17 06:35 | OP ---
PATIENT NAME: SHAWN CHI MEDICAL RECORD: [id number] :69 LOCATION:D. D.1209 ADMISSION DATE:01/16/20 SURGEON: KARTIK LIVINGSTON DO DATE OF OPERATION: 01/16/2020 PROCEDURE PERFORMED: Left total knee arthroplasty. PREOPERATIVE DIAGNOSIS: Left knee osteoarthritis. POSTOPERATIVE DIAGNOSIS: Left knee osteoarthritis. INDICATIONS: Ms. Chi is a 54-year-old female who has had severe arthritis for quite some time. She has been trying to nurse it along with injections and all manner of nonoperative treatment. She has gotten to the point where she cannot deal with it and it has affected her activities of daily living. She wants something done surgically. She is aware of the risks and benefits including infection, bleeding, damage to nerves or vessels, need for further surgery, continued pain, failure of implants, fracture, and even and she signed the consent. SURGEON: Kartik Livingston DO DESCRIPTION OF PROCEDURE: The patient was taken to the operative suite, laid in supine position, after given a block by anesthesia in preoperative area given 3 g of Ancef and 80 mg of gentamicin preoperatively and a gram of TXA, which was in the operative suite. She was sedated and LMA was placed. The left lower extremity was prepped and draped in sterile fashion. A time-out was performed. Everyone was in agreeance with correct side, site, patient, and procedure. I then marked out the incision, covered in Ioban. I then began by cutting through the skin with a 10 blade scalpel. Careful dissection down to the capsule and did a medial parapatellar approach. I then everted the patella, removed part of the fat pad, and milled the patella down. I then exposed the femur and took out the ACL and drilled into the femoral canal, placed the distal femoral cutting guide through in the canal and cut the distal femur. I then exposed the proximal tibia and cut it. I then brought the knee into extension. The menisci were removed when the knee was flexed and brought the knee into extension. I removed the rest of coagulating vessels that were bleeding at that time. I then flexed up the knee and sized the femur. After this, an extension block fit well at the knee in extension. I then sized the femur to be a 65. A 65 four-in-one cutting block was then put on the femur. I used cary wing to ensure there was no notching. I then cut the distal femur with the four-in-one cutting block. I then impacted on the trial and floated in the tibia with a 10 poly and marked the rotation. I then drilled the holes for the patella through a guide and then lug holes in the femur through the trial. I then exposed the tibia, sized it to be a 71, and reamed and punched and put extra holes in it for the cement. Then, the cement was then mixed and placed in the tibia and on the implant, impacted the implant into place. The tibial tray was impacted. Any excess cement was removed. I then impacted the femur on and put a 14 poly in between and brought the knee to an extension and irrigated the patella and cleaned the holes with curet and used the cement on the patella and on the patellar implant, squeezed it into place, removed excess cement. We placed extra cement then on the tibia. I then put in the 10% povidone-iodine and 500 mL of normal saline solution. I allowed it to sit for 3 minutes, irrigated out with over a liter of normal saline. I then trialled after the cement had dried. Trialed up to an 18. An 18 fit very well. I then had to release part of the PCL. She was tight in OPERATIVE REPORT [id number] SHAWN CHI E flexion on the medial side. Once I did that, the 18 fit very well. I then put an 18 anterior stabilized E poly in and locked it into place with a locking bar. I then irrigated one more time and put in Holli and vancomycin and tobramycin powder. I then closed the capsule with #1 Vicryl in a estsxn-gm-ugoid fashion. This was done by myself; Jake Martines, certified surgical magistrate assistant; and Benita Greer, certified surgical magistrate assistant. Jake and Benita then closed the skin with 2-0 Vicryl in interrupted fashion and a ZipLine placed on the knee. She was then dressed with a Prevena Restor VAC and then a ABRAN hose stocking up to the knee. She was awakened and taken to recovery in stable condition. BLOOD LOSS: Approximately 250 mL. COMPLICATIONS: None. NTS:[id number] Voice Confirmation ID: [id number] DOCUMENT ID: [id number] KARTIK LIVINGSTON DO at 0635 CC: [id number] DICTATION DATE: 01/16/20 1501 FROZEN FOODS MANAGER: 01/17/20 0051 ADM IN [facility] [address] [id number]
[2020-01-17 07:15] LABS: BASOPHILS 0.1 % (0-2); EOSINOPHILS 0.2 % (0-7); HEMATOCRIT 39.2 % (36.0-48.0); HEMOGLOBIN 12.4 g/dL (12-16); IMMATURE GRANULOCYTES 0.2 % (0-5); LYMPHOCYTES 13.8 % (15-50); MCH 28.4 pg (26.0-34.0); MCHC 31.6 g/dL (31.0-37.0); MCV 89.7 fL (80.0-100.0); MEAN PLATELET VOLUME 9.8 fL (7.4-10.4); MONOCYTES 10.3 % (2-11); NEUTROPHILS 75.4 % (40-80); PLATELET COUNT 242 10x3/uL (130-400); RBC 4.37 10x6/uL (4.00-5.40); RDW 13.1 % (11.5-14.5); WBC 10.5 10x3/uL (4.8-10.8)
[2020-01-17 07:55] LABS: CALC OSMOLALITY 277 mosm/kg (275-300); CALCIUM 8.5 mg/dL (8.5-10.1); CARBON DIOXIDE 32.2 mmol/L (21.0-32.0); CHLORIDE - SERUM 102 mmol/L (98-107); CREATININE - SERUM 0.6 mg/dL (0.6-1.3); GLUCOSE 90 mg/dL (74-106); POTASSIUM - SERUM 4.1 mmol/L (3.5-5.1); SODIUM 139 mmol/L (136-145); UREA NITROGEN 13 mg/dL (7-18); eGFR NON AFRICAN AMERICAN > 90 mL/min (90-120)
[2020-01-17 11:34] VITALS: BP 108/58
[2020-01-17 14:03] VITALS: BP 108/58; Ht 165.1 cm; Wt 121.8 kg
--- NOTE | 2020-01-17 14:43 | NUR ---
PATIENT IN BED. FAMILY AT BEDSIDE. DENIES PAIN OR NEEDS. BED LOW POSITION, CALL LIGHT IN REACH. WILL CONTINUE TO MONITOR.
[2020-01-17 16:00] VITALS: BP 114/52
--- NOTE | 2020-01-17 19:15 | NUR ---
REPORT GIVEN BY STEPHANIE YEE
[2020-01-17 20:00] VITALS: BP 105/55
--- NOTE | 2020-01-17 20:00 | NUR ---
PT ASSESSMENT COMPLETED. HEART SOUNDS ARE WNL, LUNGS SOUND CLEAR, AND BOWEL SOUNDS ARE HEARD. PT IS ON A REGULAR DIET. SHE AMBULATES TO THE BR WITH SBAN USING HER WALKER. HER LEFT KNEE HAS THE SURGICAL DRESSING INTACT. NO DRAINAGE NOTED. SHE ALSO HAS A SMALL WOUND VAC IN PLACE UNDER THE [place] WRAP. SHE IS ON THE CPM AT THIS TIME. SHE HAS NO C/O OF PAIN. PT CALL LIGHT IS IN REACH TO USE IF NEEDED. .
--- NOTE | 2020-01-17 21:30 | NUR ---
CPM TAKEN OFF.
--- NOTE | 2020-01-17 21:40 | NUR ---
UP TO BR USING HER WALKER SBA. SHE IS DOING WELL GETTING UP AND BACK TO BED WITH THE WALKER.
--- NOTE | 2020-01-17 21:50 | NUR ---
PT STATES THAT HER KNEE HURT SO BAD GETTING BACK INTO BED FROM BR THAT SHE'S NAUSEATED AND ASKED FOR A ZOFRAN. THIS WAS GIVEN
--- NOTE | 2020-01-17 22:00 | NUR ---
PT UP TO THE BR WITH SBA USING HER WALKER. SHE DID WELL TO THE BR AND BACK TO BED. CALL LIGHT CLOSE.
--- NOTE | 2020-01-17 22:12 | NUR ---
PT CALLED MURSE TO THE ROOM AND STATED THAT SHE NEEDED PAIN MEDS. HER PAIN WAS RATED A 10 AT THIS TIME WITH TEARS IN HER EYES. SHE STATES THAT SHE WAITED TOO LONG TO ASK FOR PAIN MEDS.
--- NOTE | 2020-01-17 22:19 | NUR ---
DIALUDID 2 MG GIVEN PO FOR PAIN. PT REQUESTED THE 2 MG BECAUSE SHE DIDN'T WANT HER BP TO DROP.
--- NOTE | 2020-01-17 22:24 | NUR ---
TORADOL 15 MG GIVEN IV FOR PAIN. HER LINE WAS FLUSHED FIRST WITH NS. AFTER THE MEDICATION GIVEN FLUSHED THE LINE AGAIN. SHE ASKED FOR FRESH ICE PACKS AND A NEW GLASS OF ICE WATER.
--- NOTE | 2020-01-17 22:35 | NUR ---
PT WAS DELIVERED FRESH ICE WATER AND FRESH ICE PACKS WHICH WERE PLACED ON HER LEFT KNEE. LIGHTS OFF AND HOPEFULLY TO SLEEP FOR THIS PT.
--- NOTE | 2020-01-18 02:36 | NUR ---
PT UP TO BR. NO PROBLEMS NOTED. PT ASKED FOR ANOTHER 2 MG DIALUDID. THIS WAS GIVEN.
--- NOTE | 2020-01-18 03:30 | NUR ---
PT PLACED ON CPM MACHINE PER HER REQUEST. SHE IS GOING BACK TO SLEEP AT THIS TIME.
[2020-01-18 05:00] VITALS: BP 111/61
--- NOTE | 2020-01-18 05:46 | NUR ---
PT IS DOING WELL ON HER CPM. NO C/O AT THIS TIME OF PAIN.
--- NOTE | 2020-01-18 07:12 | NUR ---
PT IS RESTING IN BED WITH EYES OPEN. RESPIRATIONS ARE EVEN AND UNLABORED. PT IS AAO X 4. PT DENIES PRESENCE OF DIZZINESS/DYSPNEA AT THIS TIME. INCENTIVE SPIROMETER AT BEDSIDE. PT VERBALIZES UNDERSTANDING WITH PROPER USE AND IMPORTANCE OF USE FOR INCENTIVE SPIROMETER. INCENTIVE SPIROMETER ENCOURAGED. DRESSING TO LEFT KNEE NOTED AND IS CDI. WOUND VAC TO LEFT KNEE NOTED AND IS WORKING WITHOUT COMPROMISE. PT DENIES PRESENCE OF NUMBNESS/TINGLING TO BLE. CAP REFILL IS < 3 SEC ON BLE. BED IS IN THE LOWEST POSITION. CALL LIGHT AND BEDSIDE TABLE ARE WITHIN REACH. SIDE RAILS X 2. PT DENIES FURTHER NEEDS. WILL CONT TO MONITOR.
[2020-01-18 07:30] LABS: BASOPHILS 0.2 % (0-2); EOSINOPHILS 2.5 % (0-7); HEMATOCRIT 36.1 % (36.0-48.0); HEMOGLOBIN 11.6 g/dL (12-16); IMMATURE GRANULOCYTES 0.2 % (0-5); LYMPHOCYTES 16.2 % (15-50); MCH 28.6 pg (26.0-34.0); MCHC 32.1 g/dL (31.0-37.0); MCV 88.9 fL (80.0-100.0); MEAN PLATELET VOLUME 9.4 fL (7.4-10.4); MONOCYTES 13.6 % (2-11); NEUTROPHILS 67.3 % (40-80); PLATELET COUNT 204 10x3/uL (130-400); RBC 4.06 10x6/uL (4.00-5.40); RDW 13.1 % (11.5-14.5); WBC 8.1 10x3/uL (4.8-10.8)
[2020-01-18 07:43] LABS: CALC OSMOLALITY 270 mosm/kg (275-300); CALCIUM 8.6 mg/dL (8.5-10.1); CARBON DIOXIDE 31.1 mmol/L (21.0-32.0); CHLORIDE - SERUM 101 mmol/L (98-107); CREATININE - SERUM 0.7 mg/dL (0.6-1.3); GLUCOSE 98 mg/dL (74-106); POTASSIUM - SERUM 3.5 mmol/L (3.5-5.1); SODIUM 136 mmol/L (136-145); UREA NITROGEN 11 mg/dL (7-18); eGFR NON AFRICAN AMERICAN > 90 mL/min (90-120)
[2020-01-18 07:51] VITALS: BP 127/64
[2020-01-18] MEDS ORDERED: DILAUDID4 MG PO (08:57)
[2020-01-18] MEDS ORDERED: ELIQUIS2.5 MG PO (08:57)
[2020-01-18] MEDS ORDERED: VISTARIL50 MG PO (08:57)
[2020-01-18] MEDS ORDERED: KEFLEX500 MG PO (08:58)
[2020-01-18] MEDS ORDERED: ZOFRAN ODT4 MG/UDTAB PO (08:58)
[2020-01-18 10:59] VITALS: BP 114/51
--- NOTE | 2020-01-18 13:24 | MORECARE ---
CASE MANAGEMENT DISCHARGE SUMMARY PATIENT: SHAWN MORALES UNIT: [id number] ADM DATE: 01/16/20 AGE: 54 : [birth year] SEX: F ROOM/BED: D.1209 AUTHOR: MARY SCHWAB PHYSICIAN: REFERRING PHYSICIAN: HUMBERTO LIVINGSTON DO DATE OF SERVICE: 01/18/20 Discharge Plan Patient Name: SHAWN MORALES [facility] [facility] 1965 Planned Disposition: Outpatient PT\OT Anticipated Discharge Date: 01/18/20 Discharge Date: Expected LOS: 2 Initial Reviewer: [id number] Initial Review Date: 01/18/2020 Generated: 01/18/20 2:24 pm Patient Name: SHAWN MORALES Page [phone] at 1324 All edits/amendments must be made on the electronic document DICTATION DATE: 01/18/20 1324 MIGRATORY FARM HAND: PAT 01/18/20 1324 RPT#: [id number] DC DATE: STATUS: ADM IN [facility] [address] [place] [address] END OF REPORT
--- NOTE | 2020-01-18 13:45 | NUR ---
ALL DISCHARGE INSTRUCTIONS COVERED WITH PT. (5) PRINTED RX GIVEN TO PT. PT DENIES ANY FURTHER QUESTIONS/CONCERNS/NEEDS. ALL DISCHARGE PAPERS SIGNED BY PT. PIV TO RIGHT FA REMOVED WITH CATHETER TIP INTACT. DRESSING APPLIED. ALL SIGNED DC PAPERS PLACED IN PT CHART. PT TO NOTIFY NURSE WHEN READY FOR TRANSPORT FROM ROOM.
--- NOTE | 2020-01-18 13:48 | MORECARE ---
CASE MANAGEMENT DISCHARGE SUMMARY PATIENT: SHAWN CHI UNIT: [id number] ADM DATE: 01/16/20 AGE: 54 : 69 SEX: F ROOM/BED: D.1209 AUTHOR: JOSSELIN,DOC PHYSICIAN: REFERRING PHYSICIAN: HUMBERTO LIVINGSTON DO DATE OF SERVICE: 01/18/20 Discharge Plan Patient Name: SHAWN CHI Facility: [facility]:[place] : 1965 Planned Disposition: Outpatient PT\OT Anticipated Discharge Date: 01/18/20 Discharge Date: Expected LOS: 2 Initial Reviewer: [id number] Initial Review Date: 01/18/2020 Generated: 01/18/20 2:47 pm Comments DCP- Discharge Planning Updated by [email or web address]: Cindi West on 01/18/20 12:[address] Patient Name: SHAWN CHI Admission Status: Elective Accout number: [id number] Admission Date: 01-16-2020 : 1965 Admission Diagnosis: Attending: HUMBERTO LIVINGSTON Current LOS: 2 Anticipated DC Date: 01-18-2020 Planned Disposition: Outpatient PT\OT Primary Insurance: [employer] OUT OF STATE Discharge Planning Comments: Discharge Planning Comments: CM met with patient and spouse to discuss discharge planning / needs. Patient states that prior to hospitalization she lived at home with her , barby. States herdischarge plan is to go home and attend [facility] Outpatient Therapy. States the home environment is safe. States her , Rolando Chi, will transport her home. States she has someone to drive her to therapy appointments. Signed KODY for [facility] Outpatient Therapy and [facility]. Copies on chart.CM called and spoke with Neena Benites at [facility] Outpatient Therapy. Appointment scheduled for 01/22/20 at 11:30. Patient verbalized understanding and satisfaction with discharge plans. Denies any other discharge planning needs at this time. CM faxed records to [facility] Outpatient Therapy as requested. CM will continue to follow and assist as needed with discharge planning / needs. Blacksmith Helper: Cindi West DCPIA - Discharge Planning Initial Assessment Updated by [email or web address]: Cindi West on 01/18/20 1:34 pm * Is the patient Alert and Oriented? Yes * How many steps to enter\exit or inside your home? 5 w/rail * PCP Sourav * Pharmacy [facility] * Preadmission Environment Home with Family * ADLs Independent * Equipment Grab Bars Rolling Walker Shower Chair * Other Equipment CPM, Ice Machine, Hand Held Shower head * List name and contact numbers for known caregivers / representatives who currently or will assist patient after discharge: Rolando Chi, Spouse, * Verbal permission to speak to the caregivers and representatives has been obtained from the patient. Yes * Community resources currently utilized Other * Please name any agencies selected above. [employer], [facility] * Additional services required to return to the preadmission environment? Yes * Can the patient safely return to the preadmission environment? Yes * Has this patient been hospitalized within the prior 30 days at any hospital? No External Providers External Provider: [facility] Outpt PT Next Contact Date: Service Request Date: Service Type: Resolution: Reviewer: Comments: Coverage Notice Reviewer: [id number] Ameena West Notice Issued Date-Time: 01/18/2020 11:03 Notice Type: Patient Choice Letter Notice Delivered To: Patient Relationship to Patient: Self Glassware Verifier Name: Delivery Method: HAND - Hand Delivered Princess Days: Prior Verbal Notification: Recipient Understood Notice: Yes Recipient Signature: Yes Med Rec Note Co-signed by Attending: Coverage Notice Comment: Last DP export: 01/18/20 12:24 p Patient Name: SHAWN CHI Page 42495 at 1348 All edits/amendments must be made on the electronic document DICTATION DATE: 01/18/20 1347 MANAGER MALL: PAT 01/18/20 1347 RPT#: [id number] DC DATE: STATUS: ADM IN [facility] [address] [place] [address] END OF REPORT
--- NOTE | 2020-01-18 14:16 | NUR ---
PT ESCORTED FROM ROOM VIA WHEELCHAIR FOR TRANSPORTATION HOME BY THIS NURSE. PT DENIES FURTHER QUESTIONS/CONCERNS/NEEDS AT THIS TIME. PT STATES THAT SHE DOES HAVE ALL PERSONAL BELONGINGS/PRINTED RX/WOUND VAC. PT THANKS THIS NURSE FOR CARE GIVEN DURING THIS SHIFT.
--- NOTE | 2020-01-18 17:10 | MORECARE ---
CASE MANAGEMENT DISCHARGE SUMMARY PATIENT: SHAWN CHI UNIT: [id number] ADM DATE: 01/16/20 AGE: 54 : 69 SEX: F ROOM/BED: D.1209 AUTHOR: MARY SCHWAB PHYSICIAN: REFERRING PHYSICIAN: HUMBERTO LIVINGSTON DO DATE OF SERVICE: 01/18/20 Discharge Plan Patient Name: SHAWN CHI Facility: [facility]:[place] : 1965 Planned Disposition: Outpatient PT\OT Anticipated Discharge Date: 01/18/20 Discharge Date: 01/18/2020 Expected LOS: 2 Initial Reviewer: [email or web address] Initial Review Date: 01/18/2020 Generated: 01/18/20 6:09 pm Comments DCP- Discharge Planning Updated by [email or web address]: Cindi West on 01/18/20 12:[address] Patient Name: SHAWN CHI Admission Status: Elective Accout number: [id number] Admission Date: 01-16-2020 : 1965 Admission Diagnosis: Attending: HUMBERTO LIVINGSTON Current LOS: 2 Anticipated DC Date: 01-18-2020 Planned Disposition: Outpatient PT\OT Primary Insurance: [employer] OUT OF STATE Discharge Planning Comments: Discharge Planning Comments: CM met with patient and spouse to discuss discharge planning / needs. Patient states that prior to hospitalization she lived at home with her , barby. States herdischarge plan is to go home and attend [facility] Outpatient Therapy. States the home environment is safe. States her , Rolando Chi, will transport her home. States she has someone to drive her to therapy appointments. Signed KODY for [facility] Outpatient Therapy and [facility]. Copies on chart.CM called and spoke with Neena Benites at [facility] Outpatient Therapy. Appointment scheduled for 01/22/20 at 11:30. Patient verbalized understanding and satisfaction with discharge plans. Denies any other discharge planning needs at this time. CM faxed records to [facility] Outpatient Therapy as requested. CM will continue to follow and assist as needed with discharge planning / needs. On Site Construction Superintendent: Cindi West DCPIA - Discharge Planning Initial Assessment Updated by [id number]: Cindi West on 01/18/20 1:34 pm * Is the patient Alert and Oriented? Yes * How many steps to enter\exit or inside your home? 5 w/rail * PCP Rafat * Pharmacy [facility] * Preadmission Environment Home with Family * ADLs Independent * Equipment Grab Bars Rolling Walker Shower Chair * Other Equipment CPM, Ice Machine, Hand Held Shower head * List name and contact numbers for known caregivers / representatives who currently or will assist patient after discharge: Rolando Chi, Spouse, * Verbal permission to speak to the caregivers and representatives has been obtained from the patient. Yes * Community resources currently utilized Other * Please name any agencies selected above. [employer], [facility] * Additional services required to return to the preadmission environment? Yes * Can the patient safely return to the preadmission environment? Yes * Has this patient been hospitalized within the prior 30 days at any hospital? No Coverage Notice Reviewer: [id number] Ameena West Notice Issued Date-Time: 01/18/2020 11:03 Notice Type: Patient Choice Letter Notice Delivered To: Patient Relationship to Patient: Self Addiction Nurse Name: Delivery Method: HAND - Hand Delivered Princess Days: Prior Verbal Notification: Recipient Understood Notice: Yes Recipient Signature: Yes Med Rec Note Co-signed by Attending: Coverage Notice Comment: Last DP export: 01/18/20 12:48 p Patient Name: SHAWN CHI Page [phone] at 1710 All edits/amendments must be made on the electronic document DICTATION DATE: 01/18/201709 FORM TAMPER: PAT 01/18/201709 RPT#: [id number] DC DATE:01/18/20 STATUS: DIS IN [facility] [address] [place] [address] END OF REPORT
--- NOTE | 2020-01-22 17:36 | MORECARE ---
CASE MANAGEMENT DISCHARGE SUMMARY PATIENT: SHAWN CHI UNIT: [id number] ADM DATE: 01/16/20 AGE: 54 : 69 SEX: F ROOM/BED: D.1209 AUTHOR: MARY SCHWAB PHYSICIAN: REFERRING PHYSICIAN: HUMBERTO LIVINGSTON DO DATE OF SERVICE: 01/22/20 Discharge Plan Patient Name: SHAWN CHI Facility: [facility]:[place] : 1965 Planned Disposition: Outpatient PT\OT Anticipated Discharge Date: 01/18/20 Discharge Date: 01/18/2020 Expected LOS: 2 Initial Reviewer: [email or web address] Initial Review Date: 01/18/2020 Generated: 01/22/20 6:35 pm Comments DCP- Discharge Planning Updated by [email or web address]: Cindi West on 01/18/20 12:[address] Patient Name: SHAWN CHI Admission Status: Elective Accout number: [id number] Admission Date: 01-16-2020 : 1965 Admission Diagnosis: Attending: HUMBERTO LIVINGSTON Current LOS: 2 Anticipated DC Date: 01-18-2020 Planned Disposition: Outpatient PT\OT Primary Insurance: [employer] OUT OF STATE Discharge Planning Comments: Discharge Planning Comments: CM met with patient and spouse to discuss discharge planning / needs. Patient states that prior to hospitalization she lived at home with her , barby. States herdischarge plan is to go home and attend [facility] Outpatient Therapy. States the home environment is safe. States her , Rolando Chi, will transport her home. States she has someone to drive her to therapy appointments. Signed KODY for [facility] Outpatient Therapy and [facility]. Copies on chart.CM called and spoke with Neena Benites at [facility] Outpatient Therapy. Appointment scheduled for 01/22/20 at 11:30. Patient verbalized understanding and satisfaction with discharge plans. Denies any other discharge planning needs at this time. CM faxed records to [facility] Outpatient Therapy as requested. CM will continue to follow and assist as needed with discharge planning / needs. Printing Technician: Cindi West DCPIA - Discharge Planning Initial Assessment Updated by [email or web address]: Cindi West on 01/18/20 1:34 pm * Is the patient Alert and Oriented? Yes * How many steps to enter\exit or inside your home? 5 w/rail * PCP Rafat * Pharmacy [facility] * Preadmission Environment Home with Family * ADLs Independent * Equipment Grab Bars Rolling Walker Shower Chair * Other Equipment CPM, Ice Machine, Hand Held Shower head * List name and contact numbers for known caregivers / representatives who currently or will assist patient after discharge: Rolando Chi, Spouse, * Verbal permission to speak to the caregivers and representatives has been obtained from the patient. Yes * Community resources currently utilized Other * Please name any agencies selected above. [employer], [facility] * Additional services required to return to the preadmission environment? Yes * Can the patient safely return to the preadmission environment? Yes * Has this patient been hospitalized within the prior 30 days at any hospital? No Coverage Notice Reviewer: [id number] Ameena West Notice Issued Date-Time: 01/18/2020 11:03 Notice Type: Patient Choice Letter Notice Delivered To: Patient Relationship to Patient: Self Client Account Representative Name: Delivery Method: HAND - Hand Delivered Princess Days: Prior Verbal Notification: Recipient Understood Notice: Yes Recipient Signature: Yes Med Rec Note Co-signed by Attending: Coverage Notice Comment: Last DP export: 01/18/20 4:10 p Patient Name: SHAWN CHI Page 38965 at 1736 All edits/amendments must be made on the electronic document DICTATION DATE: 01/22/201734 TEACHER VOCAL: PAT 01/22/201734 RPT#: [id number] DC DATE:01/18/20 STATUS: DIS IN [facility] [address] [place] [address] END OF REPORT
== END 2020-01-18 14:24 | disposition home or self-care (01) | DRG 470 ==
LOC: D.SDCHOLD 01-10 10:00 → D.M3 01-16 08:00 → D.SDCHOLD 01-16 08:00 → D.M3 01-16 10:22 → D.SDCHOLD 01-16 11:30 → D.M3 01-18 14:24
PROVIDERS: Family Medicine Adult Medicine; ADMIT Orthopaedic Surgery; ATTEND Orthopaedic Surgery
PROC: 0SRD0J9 Replacement of Left Knee Joint with Synthetic Substitute, Cemented, Open Approach (ICD-10-PCS; principal; 2020-01-16 10:15)
DX: M17.12 Unilateral primary osteoarthritis, left knee (principal); E87.1 Hypo-osmolality and hyponatremia; I10 Essential (primary) hypertension; K21.9 Gastro-esophageal reflux disease without esophagitis; F32.9 Major depressive disorder, single episode, unspecified; K59.00 Constipation, unspecified; Z87.891 Personal history of nicotine dependence